=== PATIENT | female | born 1995 | race Caucasian/White ===

== ENCOUNTER 2020-01-04 13:00 | Outpatient (RCR) | payer BC, SELFPAY ==
--- NOTE | 2020-03-06 08:17 | MHC.PT.DC ---
[facility] [place] Office [place] Office [place] Office [address] Veronica Blount [address] [phone] F: [phone] F: [phone] F: [phone] F: [phone] Physical Therapy Discharge Report Diagnosis: Date of Surgery: NA Date of Evaluation: 12/06/19 Date of Discharge: 03/06/20 Treatments to Date: 5 Cancellations to Date: 2 No Shows to Date: 0 Discharge Status: Independent with HEP Patient Elected to Stop Discharge Summary: Pt has no pain when pelvis and spine are in neutral position. Pt has instability in lumbar spine most notable in Lower lumbar. Pt tends to arch lumbar during end range stretching. Propioceptive input with cues and therapist assist during exercises today to help cue on neutral spine position. Pt corrects well with verbal cues. Pt asked to do hip flexor and rectus femoris stretch at home. Electronically signed by: Katia Mendoza PT DPT Please sign and return to therapist. Thank you for your referral.
== END 2020-11-28 13:20 | disposition home or self-care (01) ==
LOC: HO.PT 13:00
PROVIDERS: Visit Provider Family Medicine
DX: M54.5 Low back pain (principal)
CPT/HCPCS: 97110; 97112

== ENCOUNTER 2020-05-24 10:59 | Outpatient (RCR) | payer BC, SELFPAY ==
--- NOTE | 2020-05-24 14:22 | MHC.PT.EP ---
[facility] [place] Office [place] Office [place] Office [address] Veronica Blount [address] [phone] F: [phone] F: [phone] F: [phone] F: [phone] Physical Therapy Plan of Care Date of Evaluation: 05/24/20 Date of Surgery: N/A Diagnosis: Low Back Pain Assessment: Shae is a 25-year-old female presenting to physical therapy with low back pain. She presents with impairments in lumbar ROM, B LE strength, decreased abdominal strength, and altered pelvic symmetry. 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 Frequency and Duration: The patient will be seen 2 visits per week for 5 weeks. 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 2.) Pt will report <2/10 pain at rest to allow her to work on the computer within 3 weeks. 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 2.) Pt will be independent with HEP for symptom management and maintenance following discharge within 5 weeks Treatment Plan: Modalities to reduce pain, spasms and effusion. Manual therapy to restore motion and function. Therapeutic exercise to improve strength and flexibility. Neuromuscular re-education for posture and balance. Therapeutic activities to return to functional activities of daily living. Electronically signed by: Claudia Ulrich, PT, DPT Please sign and return to therapist. Thank you for your referral.
--- NOTE | 2020-06-28 14:16 | MHC.PT.DC ---
[facility] [place] Office [place] Office [place] Office [address] Veronica Blount 140 [facility] [phone] F: [phone] F: [phone] F: [phone] F: [phone] Physical Therapy Discharge Report Diagnosis: Low Back Pain Date of Surgery: N/A Date of Evaluation: 05/24/20 Date of Discharge: 06/28/20 Treatments to Date: 1 Cancellations to Date: 0 No Shows to Date: 0 Discharge Status: Patient Elected to Stop Discharge Summary: Pt did not attend any therapy sessions in over a month due to personal issues. Pt therefore d/c from therapy and was advised to return to therapy when able. Electronically signed by: Claudia Ulrich PT, DPT Please sign and return to therapist. Thank you for your referral.
== END 2020-06-28 14:17 | disposition other institution (70) ==
LOC: HO.PT 10:59
PROVIDERS: PCP Family Medicine; Visit Provider Family Medicine
DX: M54.5 Low back pain (principal)
CPT/HCPCS: 97112; 97140; 97161

== ENCOUNTER 2020-08-07 08:00 | Outpatient (RCR) | payer BC, SELFPAY ==
--- NOTE | 2020-07-31 13:11 | MHC.PT.EP ---
[facility] [place] [facility] [place] Office [place] Office [address] Veronica Blount [address] [phone] F: [phone] F: [phone] F: [phone] F: [phone] Physical Therapy Plan of Care Date of Evaluation: Date of Surgery: Diagnosis: LOW BACK PAIN Assessment: Pt IS 25 YO F REFERRED TO PT FROM DR GÓMEZ WITH LOW BACK PAIN. Pt HAS HAD PT FOR THIS ISSUE WITH SOME RELIEF BUT WASNT ABLE TO COMPLETE LAST BOUT BECAUSE OF WORK HOUR CHANGE. Pt PRESENTS WITH C/O R SIDED LBP WITH SI INVOLVEMENT, Pt WITH POP /CLICKS NOTED IN SI AREA/PUBIC AREA AND FEMORAL AREA. 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 RECOMMENDED 2X/WK BUT Pt REQUESTS 1X/WK FOR SUSTAINABLILITY (Pt HAS HAD TROUBLE CONTINUING WITH SESSIONS IN PAST SO 1X/WK MAY BE MORE BENEFICIAL Frequency and Duration: The patient will be seen 1X/WK X 4 WEEKS Short Term Goals: 1. I HEP WITH DC EX PLAN 2. IMPROVED PELVIC SYMMETRY Fdc Goals: 1.DECREASED BACK PAIN AT LEAST 50% WITH ADLS 2. IMPROVED MOD OSWESTRY Treatment Plan: Modalities to reduce pain, spasms and effusion. Manual therapy to restore motion and function. Therapeutic exercise to improve strength and flexibility. Neuromuscular re-education for posture and balance. Therapeutic activities to return to functional activities of daily living. Electronically signed by: DARION ROCKWELL PT Please sign and return to therapist. Thank you for your referral.
--- NOTE | 2020-09-11 14:07 | MHC.PT.DC ---
[facility] [place] Office [place] Office [place] Office [address] Veronica Blount [address] [phone] F: [phone] F: [phone] F: [phone] F: [phone] Physical Therapy Discharge Report Diagnosis: LOW BACK PAIN Date of Surgery: Date of Evaluation: 07/31/20 Date of Discharge: 09/11/20 Treatments to Date: 2 Cancellations to Date: No Shows to Date: Discharge Status: Patient Elected to Stop Recommend MD Follow-up Discharge Summary: Pt SEEN FOR INIT EVAL AND 1 VISIT PER THAT NOTE BY LORI [employer] LIFE AGENT:[ 08/07 all ex focused on stability at pelvis avoidance of ant. pelvic tilt in static standing.]. Pt THEN CANCELLED NEXT VISIT THEN NS X 2 (?) Electronically signed by: DARION ROCKWELL PT Please sign and return to therapist. Thank you for your referral.
== END 2020-09-11 14:08 | disposition other institution (70) ==
LOC: HO.PT 08:00
PROVIDERS: PCP Family Medicine; Visit Provider Family Medicine
DX: M54.5 Low back pain (principal)
CPT/HCPCS: 97110; 97161

== ENCOUNTER 2021-02-06 12:42 | Outpatient (REF) | payer BC, SELFPAY ==
[2021-02-06 15:04] LABS: Influenza A PCR NEGATIVE (Negative); Influenza B PCR NEGATIVE (Negative); Resp Syncy Virus RNA Qual PCR NEGATIVE (Negative); SARS COV2 PCR INHOUSE NEGATIVE (Negative)
== END 2021-02-06 12:43 | disposition home or self-care (01) ==
LOC: HO.LAB 12:42
PROVIDERS: Visit Provider Family Medicine
DX: Z20.822 Contact with and (suspected) exposure to COVID-19 (principal); J02.9 Acute pharyngitis, unspecified
CPT/HCPCS: 0241U; 36415

== ENCOUNTER 2021-03-21 15:54 | Outpatient (REF) | payer BC, SELFPAY ==
[2021-03-21 20:04] LABS: Influenza A PCR NEGATIVE (Negative); Influenza B PCR NEGATIVE (Negative); Resp Syncy Virus RNA Qual PCR NEGATIVE (Negative); SARS COV2 PCR INHOUSE NEGATIVE (Negative)
== END 2021-03-21 15:55 | disposition home or self-care (01) ==
LOC: HO.LAB 15:54
PROVIDERS: Visit Provider Family Medicine
DX: Z20.822 Contact with and (suspected) exposure to COVID-19 (principal)
CPT/HCPCS: 0241U

== ENCOUNTER 2021-05-14 13:10 | Outpatient (REF) | payer BC, SELFPAY ==
[2021-05-14 13:29] LABS: MANUAL DIFF FLAG NO
[2021-05-14 14:01] LABS: Basophils Percent Auto 0.6 % (0-2); Eosinophils Absolute Auto 0.1 X10*3/uL (0.0-0.4); Eosinophils Percent Auto 2.6 % (0-4); Hemoglobin 11.7 g/dl (12.0-16.0); Imm Gran Abs Auto 0.01 X10*3/uL (0.00-0.03); Imm Gran Pct Auto 0.2 % (0.0-0.4); Lymphocytes Absolute Auto 1.8 X10*3/uL (1.2-4.9); Lymphocytes Percent Auto 36.1 % (20-40); Mean Corpuscular HGB Conc 32.5 g/dl (31.0-35.0); Mean Corpuscular Hemoglobin 28.3 pg (27.0-33.0); Monocytes Absolute Auto 0.4 X10*3/uL (0.1-1.2); Monocytes Percent Auto 8.8 % (2-11); Neutrophils Absolute Auto 2.6 x10*3/uL (2.0-8.3); Neutrophils Percent Auto 51.7 % (45-73); Platelet Count 249 X10*3/uL (160-400); Red Blood Count 4.14 X10*6/uL (4.20-5.50); Red Cell Distribution Width 12.6 % (11.0-16.0)
[2021-05-14 14:35] LABS: Alanine Aminotransferase 18 U/L (0-31); Albumin Level 4.4 g/dL (3.5-5.0); Alkaline Phosphatase 56 U/L (39-117); Anion Gap 7 (12-20); Aspartate Amino Transferase 18 U/L (5-31); Bilirubin Total 0.5 mg/dL (0.0-1.0); Blood Urea Nitrogen 10 mg/dL (9-16); Calcium 9.6 mg/dL (8.4-10.2); Carbon Dioxide 29 mmol/L (22-29); Chloride 106 mmol/L (96-108); Cholesterol 152 mg/dL; Estimated Glomerular Filt Rate > 60; Glucose Fasting 90 mg/dL (60-99); HDL Cholesterol 70 mg/dL; LDL Cholesterol Calculated 75 mg/dl; Potassium 4.3 mmol/L (3.3-5.1); Sodium 138 mmol/L (135-145); Total Protein 7.1 g/dL (6.5-8.0); Triglycerides 35 mg/dL
[2021-05-14 14:51] LABS: TSH reflex Free T4 0.74 uIU/mL (0.32-4.0)
== END 2021-05-14 13:11 | disposition home or self-care (01) ==
LOC: HO.LAB 13:10
PROVIDERS: PCP Family Medicine; Visit Provider Family Medicine
DX: Z00.00 Encounter for general adult medical examination without abnormal findings (principal)
CPT/HCPCS: 36415; 80053; 80061; 84443; 85025

== ENCOUNTER 2022-02-19 14:11 | Outpatient (REF) | payer BC, SELFPAY ==
[2022-02-19 15:00] LABS: Influenza A PCR POSITIVE (Negative); Influenza B PCR NEGATIVE (Negative); Resp Syncy Virus RNA Qual PCR NEGATIVE (Negative); SARS COV2 PCR INHOUSE NEGATIVE (Negative)
== END 2022-02-19 14:12 | disposition home or self-care (01) ==
LOC: HO.LNP 14:11
PROVIDERS: Visit Provider Nurse Practitioner Family
DX: Z20.822 Contact with and (suspected) exposure to COVID-19 (principal); J06.9 Acute upper respiratory infection, unspecified
CPT/HCPCS: 0241U

== ENCOUNTER 2022-11-11 13:48 | Outpatient (AMB) | payer BC, SELFPAY ==
[2022-11-11 13:55] VITALS: BP 120/70; PULSE 83; TEMP 36.9; O2SAT 99; BMI 19.7
--- NOTE | 2022-11-11 13:55 | MHC.PC.OV ---
Vital Signs 11/11/22 13:55 Height 5 ft 11 in Weight 141 lb 4 oz BMI 19.7 BP 120/70 Blood Pressure Location Lt brachial Position Sitting Pulse 83 Pulse Source Pulse Oximeter Temp 98.5 F Temp Source Oral Pulse Oximetry (%) 99 Oxygen Delivery Method Room Air Intake Visit Reasons: Med review Intake Note: Patient is here to discuss bupropion, she took 150 mgs befaore and feels she needs it again. Patient would also like refill of Valcylovir today, also. Allergies amoxicillin Allergy (Mild, Verified 11/11/22 14:10) skin rash Seasonal Allergies Allergy (Verified 11/11/22 14:10) STUFFY NOSE, SORE THROAT Medication List - Last Reconciled 11/11/22 by Celina Best CNP cetirizine (Zyrtec) 10 mg PO DAILY PRN valacyclovir 500 mg PO DAILY Tobacco use date assessed: 11/11/22 Dental Screening Dental Screen Date: 11/11/22 Did you have a dental visit in the last 12 months?: Yes Did you have a dental problem in the last 6 months where you did not have access to dental care?: No Was dental information given to patient?: Patient has dentist HPI HPI Comments History of Present Illness Details 27 y/o female presents for a f/u visit. She notes she stopped taking Wellbutrin 4 months ago. She reports increased anxiety and depression symptoms and requests to resume the medication. She notes she sees a therapist once weekly. She reports history of herpes simplex 1 and reports severe outbreak with facial rash for the past 6 weeks. She notes she recently visited her family in [place] and was prescribed Acyclovir cream which has been effective with her facial rash; she requests an order for this. No pain or itching. She notes she has an appointment with Dermatology on Friday this week. [facility] Medical History Allergies Fainting spell Surgical History History of resection of large bowel Family History Mother No problems noted. 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 1. Little interest or pleasure in doing things: several days 2. Feeling down, depressed, or hopeless: several days 3. Trouble falling or staying asleep, or sleeping too much: several days 4. Feeling tired or having little energy: several days 5. Poor appetite or overeating: nearly every day 6. Feeling bad about yourself - or that you are a failure or have let yourself or your family down: several days 7. Trouble concentrating on things, such as reading the newspaper or watching television: several days 8. Moving or speaking so slowly that other people could have noticed. Or the opposite - being so fidgety or restless that you have been moving around a lot more than usual: several days 9. Thoughts that you would be better off or of hurting yourself in some way: not at all Total score: 10 Depression Screening Interpretation: Positive Depression Screening Follow-up: Existing condition and New Medication prescribed Source: Developed by Drs. Gilbert Winston, Marilyn Hartmann, Alon Mclean and colleagues, with an educational elton from [employer]. Thrive Questionnaire Date Thrive assessed: 11/09/20 ELODIA-7 AMB Questionnaire ELODIA-7 Date ELODIA - 7 assessed: 11/11/22 Feeling nervous, anxious, or on edge: 2 = More than half the days Not being able to stop or control worryin = More than half the days Worrying too much about different things: 2 = More than half the days Trouble relaxin = More than half the days Being so restless that it is hard to sit still: 2 = More than half the days Becoming easily annoyed or irritable: 2 = More than half the days Feeling afraid as if something awful might happen: 1 = Several days Total ELODIA-7 score (0-4 normal; 5-9 mild; 10-14 moderate; 15-21 severe): 13 Source: Developed by Drs. Gilbert Winston, Marilyn Hartmann, Alon Mclean and colleagues, with an educational elton from [employer]. Review of Systems Const Details: Const Denies chills, Denies fatigue, Denies fever(s), Denies headache(s) and Denies weakness ENT Denies dizziness and Denies headache(s) Card Denies chest pain, Denies lightheadedness, Denies dyspnea and Denies other (Palpitations) Resp Denies cough, Denies dyspnea, Denies wheezing and Denies other ( shortness of breath) GI Denies abdominal pain, Denies melena, Denies hematochezia, Denies change in bowel habits, Denies dyspepsia and Denies nausea Denies hematuria and Denies dysuria Musc Denies abnormal gait, Denies myalgias, Denies arthralgias, Denies numbness and Denies tingling Skin/Breast Reports rash, Denies unusual bruising and Denies wounds Neuro Denies abnormal gait, Denies dizziness, Denies headache(s), Denies memory loss, Denies numbness, Denies Sensory deficit (Neuro), Denies tingling and Denies weakness Psych Reports anxiety, Reports depression, Denies memory loss Endo Denies cold intolerance, Denies fatigue, Denies heat intolerance, Denies polydipsia and Denies polyuria Aller/Immun Denies wheezing Physical exam (Primary Care) Vital Signs: Last Vital Signs Temp 98.5 F 11/11/22 13:55 Pulse 83 11/11/22 13:55 BP 120/70 11/11/22 13:55 Pulse Ox 99 11/11/22 13:55 Oxygen Delivery Method Room Air 11/11/22 13:55 BMI result Body Mass Index 19.7 Tobacco/Smoking Status: Tobacco use Status Tobacco use date assessed 11/11/22 11/11/22 14:07 Patient Tobacco Use Status Never used Tobacco 11/11/22 14:07 e-Cigarette/Vaping Use Never Used 11/11/22 14:07 PHQ-9: PHQ-9 Score PHQ-9: Total score 10 11/11/22 14:07 Depression Screening Interpretation: Positive Depression Screening Follow-up: Existing condition and New Medication prescribed Thrive Assessment: Date of Thrive Assessment Date Thrive assessed 11/09/20 11/11/22 14:07 Const Other: General: no acute distress and well developed Nutritional Appearance: well nourished Orientation/consciousness: patient oriented x3 [facility] Head: Yes normocephalic and Yes atraumatic Eyes General: appearance normal, both eyes and all related structures Pupils: Equal, round and reactive pupils present EOM: EOMs intact bilaterally Resp Effort & Inspection: normal respiratory effort Auscultation: clear to auscultation bilaterally Cardio Rate: regular rate Rhythm: regular rhythm Heart sounds: S1 normal heart sound present, S2 normal heart sound present, no gallops, no murmurs and no rubs GI Palpation (GI): No Abdominal aortic bruit present, Soft to palpation, nontender, No hepatosplenomegaly present and No Rebound tenderness present Auscultation: normal bowel sounds General: Yes no CVA tenderness Back/Spine/Pelvis Back: no CVA tenderness Cervical Spine: cervical ROM normal and No Cervical spine tenderness Thoracic/Lumbar Spine: thoraco-lumbar ROM normal, No pain with thoraco-lumbar ROM, No thoracic spinal tenderness and No lumbar spinal tenderness Extrem General: Yes normal to inspection, No edema and No calf tenderness Skin General: warm and dry. Normal skin color. Normal skin turgor Lesions: no lesions Rashes: Red, slightly raised pimple-like rash noted to her entire face and around her eyes, no overt infection Trauma: no lacerations or abrasions Wounds: no wounds Nails: normal Neuro General: patient oriented x3, gait normal and no focal neuro deficit Cranial nerves: Yes Equal, round and reactive pupils present Cognition (Neuro): normal cognition Gait exam (Neuro): Normal gait present Sensory Exam: No Sensory deficit (Neuro) Psych Appearance: grossly normal Affect: normal affect Attitude: cooperative Thought process: Normal thought process present Assessment and Plan Assessment & Plan (1) HSV (herpes simplex virus) infection: Code(s): B00.9 - Herpesviral infection, unspecified Plan: Red, slightly raised pimple-like rash noted to her entire face and around her eyes Acyclovir ointment ordered. Use as prescribed Follow-up with Dermatology as planned Return with worsening or new signs and symptoms Verbalized understanding and agreed with the treatment plan. (2) Anxiety and depression: Code(s): F41.9 - Anxiety disorder, unspecified; F32.9 - Major depressive disorder, single episode, unspecified Plan: ELODIA-7 in PHQ-9 scores revealed moderate anxiety and depression Bupropion ordered. Take as prescribed Continue with weekly therapy Routine exercise encouraged Follow-up with PCP as planned next month Return sooner with worsening or new symptoms Verbalized understanding and agreed with the treatment plan. Medications: New acyclovir 5% (Zovirax) 1 appl topical 3XD 7 days 5 grams 1RF B00.1 - Herpesviral vesicular dermatitis bupropion HCl 150 mg PO QAM 30 days 30 tabs 3RF Coding Level of Care Code Est Pt Level 3 (15225) Diagnoses HSV (herpes simplex virus) infection B00.9 Anxiety and depression F41.9; F32.9 Time Spent (min) 25
== END 2022-11-11 14:33 | disposition home or self-care (01) ==
PROVIDERS: PCP Family Medicine; Visit Provider Nurse Practitioner Family
DX: B00.9 Herpesviral infection, unspecified (principal); F41.9 Anxiety disorder, unspecified; F33.9 Major depressive disorder, recurrent, unspecified
CPT/HCPCS: 99213

== ENCOUNTER 2022-12-12 13:27 | Outpatient (AMB) | payer BC, SELFPAY ==
[2022-12-12 13:33] VITALS: BP 112/68; PULSE 85; O2SAT 99; BMI 19.9
--- NOTE | 2022-12-12 13:33 | A.OFFPC_ITS ---
Vital Signs 12/12/22 13:33 Height 5 ft 11 in Weight 143 lb BMI 19.9 BP 112/68 Blood Pressure Location Rt brachial Position Sitting Pulse 85 Pulse Source Pulse Oximeter Pulse Oximetry (%) 99 Oxygen Delivery Method Room Air Intake Visit Reasons: Discuss personal matters Intake Note: Patient would like a referral for a psychiatrist. Would like a mental evaluation. Allergies amoxicillin Allergy (Mild, Verified 12/12/22 13:34) skin rash Seasonal Allergies Allergy (Verified 12/12/22 13:34) STUFFY NOSE, SORE THROAT Medication List - Last Reconciled 12/12/22 by Jim Bee MD acyclovir 5% (Zovirax) 1 appl topical 3XD 7 days bupropion HCl 150 mg PO QAM 30 days cetirizine (Zyrtec) 10 mg PO DAILY PRN valacyclovir 500 mg PO DAILY Tobacco use date assessed: 12/12/22 HPI Discuss personal matters HPI Details 27 y/o female presents today to f/u anxi ety and depression. She is requesting a referral for a psychiatrist. Pt reports episodes of significant anxiety and manic episodes. She is on bupropion 150mg which she states has been helping her a bit. She also reports loose stools. PFSH Medical History Fainting spell Allergies Surgical History History of resection of large bowel Family History Mother No problems noted. 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 Gilbert Winston, Marilny Hartmann, Alon Mclean and colleagues, with an educational elton from [employer]. Review of Systems Const Denies chills, Denies fatigue, Denies fever(s), Denies headache(s) and Denies weakness ENT Denies dizziness and Denies headache(s) Card Denies chest pain, Denies lightheadedness, Denies dyspnea and Denies other (Palpitations) Resp Denies cough, Denies dyspnea, Denies wheezing and Denies other ( shortness of breath) GI Reports loose stools Musc Denies numbness and Denies tingling Neuro Denies dizziness, Denies headache(s), Denies numbness, Denies tingling, Denies paresthesias and Denies weakness Psych Reports anxiety and Reports depression Endo Denies fatigue Aller/Immun Denies wheezing Physical exam (Primary Care) Vital Signs: Last Vital Signs Pulse 85 12/12/22 13:33 BP 112/68 12/12/22 13:33 Pulse Ox 99 12/12/22 13:33 Oxygen Delivery Method Room Air 12/12/22 13:33 BMI result Body Mass Index 19.9 Tobacco/Smoking Status: Tobacco use Status Tobacco use date assessed 12/12/22 12/12/22 13:35 Patient Tobacco Use Status Never used Tobacco 12/12/22 13:35 e-Cigarette/Vaping Use Never Used 12/12/22 13:35 Thrive Assessment: Date of Thrive Assessment Date Thrive assessed 11/09/20 12/12/22 13:35 Const General: no acute distress and well developed Nutritional Appearance: well nourished Orientation/consciousness: patient oriented x3 [facility] Head: Yes normocephalic and Yes atraumatic Eyes General: appearance normal, both eyes and all related structures Pupils: Equal, round and reactive pupils present EOM: EOMs intact bilaterally Resp Effort & Inspection: normal respiratory effort Auscultation: clear to auscultation bilaterally Cardio Rate: regular rate Rhythm: regular rhythm Heart sounds: S1 normal heart sound present, S2 normal heart sound present, no gallops, no murmurs and no rubs Neuro General: patient oriented x3 and gait normal Cranial nerves: Yes Equal, round and reactive pupils present Psych Affect: Anxious affect present Assessment and Plan Assessment & Plan (1) Anxiety and depression: Code(s): F41.9 - Anxiety disorder, unspecified; F32.9 - Major depressive disorder, single episode, unspecified Plan: Ongoing moderately severe anxiety and depression. She feels that she has had a manic episode previously and more recently has been feeling like she has crashed from this and is depressed and anxious. Strong family history of bipolar disorder. I have been avoiding SSRIs for that reason. She had stopped her own medications. More recently was restarted on bupropion. Will continue bupropion an at a small amount of Abilify which she tried in the past. She initially noted it helped but later stopped it saying that she was unsure was helping much. She had had no adverse effects from that. Take bupropion in the mornings and Abilify at bedtime. Will follow-up in a couple of weeks to see if we need to adjust Abilify or bupropion further. Still has a therapist. I will refer her to Psychiatry today. (2) Loose stools: Code(s): R19.5 - Other fecal abnormalities Plan: Probable IBS and probable anxiety contributing factors. Hydrate well Trial a soluble fiber tablet. If these conservative measures and controlling her anxiety better are not im proving her symptoms, I will refer her to GI Orders: Orders Comprehensive [place]. Panel Fast Today Z00.00 - Encounter for general adult medical examination without abnormal findings Vitamin D 25-OH Total Today E55.9 - Vitamin D deficiency, unspecified TSH reflex Free T4 Today Z00.00 - Encounter for general adult medical examination without abnormal findings Complete Blood Count Auto Diff Today Z00.00 - Encounter for general adult medical examination without abnormal findings Referrals Psychiatry Referral F32.9 - Major depressive disorder, single episode, unspecified, F41.9 - Anxiety disorder, unspecified, Z81.8 - Family history of other mental and behavioral disorders Medications: New aripiprazole (Abilify) 2 mg PO BEDTIME 30 days 30 tabs 2RF calcium polycarbophil (FiberCon) 625 mg PO DAILY 30 tabs 2RF 30 days Refilled bupropion HCl 150 mg PO QAM 30 days 30 tabs 3RF Coding Level of Care Code Est Pt Level 3 (52542) Diagnoses Anxiety and depression F41.9; F32.9 Loose stools R19.5
== END 2022-12-12 14:09 | disposition home or self-care (01) ==
PROVIDERS: PCP Family Medicine; Visit Provider Family Medicine
DX: F41.9 Anxiety disorder, unspecified (principal); F33.1 Major depressive disorder, recurrent, moderate; R19.5 Other fecal abnormalities
CPT/HCPCS: 99213

== ENCOUNTER 2023-01-16 09:44 | Outpatient (REF) | payer BC, SELFPAY ==
[2023-01-16 09:54] LABS: MANUAL DIFF FLAG NO
[2023-01-16 10:54] LABS: Basophils Absolute Auto 0.1 X10*3/uL (0.0-0.2); Eosinophils Absolute Auto 0.2 X10*3/uL (0.0-0.4); Eosinophils Percent Auto 2.8 % (0-4); Hematocrit 36.2 % (37.0-47.0); Hemoglobin 11.9 g/dl (12.0-16.0); Imm Gran Abs Auto 0.03 X10*3/uL (0.00-0.03); Imm Gran Pct Auto 0.5 % (0.0-0.4); Lymphocytes Absolute Auto 1.6 X10*3/uL (1.2-4.9); Mean Corpuscular HGB Conc 32.9 g/dl (31.0-35.0); Mean Corpuscular Hemoglobin 27.4 pg (27.0-33.0); Mean Corpuscular Volume 83.2 fL (80.0-98.0); Mean Platelet Volume 8.7 fL (9.4-12.3); Monocytes Absolute Auto 0.6 X10*3/uL (0.1-1.2); Monocytes Percent Auto 9.7 % (2-11); Neutrophils Absolute Auto 3.3 x10*3/uL (2.0-8.3); Platelet Count 269 X10*3/uL (160-400); Red Blood Count 4.35 X10*6/uL (4.20-5.50); Red Cell Distribution Width 13.8 % (11.0-16.0); White Blood Count 5.8 X10*3/uL (4.8-10.8)
[2023-01-16 11:25] LABS: Alanine Aminotransferase 18 U/L (0-31); Albumin Level 4.5 g/dL (3.5-5.0); Alkaline Phosphatase 67 U/L (39-117); Anion Gap 14 (12-20); Aspartate Amino Transferase 17 U/L (5-31); Bilirubin Total 0.5 mg/dL (0.0-1.0); Blood Urea Nitrogen 11 mg/dL (9-16); Calcium 9.7 mg/dL (8.4-10.2); Carbon Dioxide 27 mmol/L (22-29); Chloride 105 mmol/L (96-108); Estimated Glomerular Filt Rate > 60; Glucose Fasting 92 mg/dL (60-99); Potassium 3.9 mmol/L (3.3-5.1); Sodium 142 mmol/L (135-145); Total Protein 7.5 g/dL (6.5-8.0)
[2023-01-16 11:41] LABS: TSH reflex Free T4 1.27 uIU/mL (0.32-4.0); Vitamin D 25-OH Total 33.2 ng/mL (>30)
== END 2023-01-16 09:45 | disposition home or self-care (01) ==
LOC: HO.LAB 09:44
PROVIDERS: PCP Family Medicine; Visit Provider Family Medicine
DX: Z00.00 Encounter for general adult medical examination without abnormal findings (principal); E55.9 Vitamin D deficiency, unspecified
CPT/HCPCS: 36415; 80053; 82306; 84443; 85025

== ENCOUNTER 2023-01-20 15:35 | Outpatient (AMB) | payer BC, SELFPAY ==
[2023-01-20 15:57] VITALS: BP 106/60; PULSE 87; O2SAT 98; BMI 22.0
--- NOTE | 2023-01-20 15:57 | MHC.PC.OV ---
Vital Signs 01/20/23 15:57 Height 5 ft 11 in Weight 158 lb BMI 22.0 BP 106/60 Blood Pressure Location Lt brachial Position Sitting Pulse 87 Pulse Source Pulse Oximeter Pulse Oximetry (%) 98 Oxygen Delivery Method Room Air Intake Visit Reasons: follow up labs, anxiety/depression Intake Note: Patient is here to follow up on labs, and anxiety and depression. Allergies amoxicillin Allergy (Mild, Verified 01/20/23 16:00) skin rash Seasonal Allergies Allergy (Verified 01/20/23 16:00) STUFFY NOSE, SORE THROAT Tobacco use date assessed: 01/20/23 HPI follow up labs, anxiety/depression HPI Details 27 y/o female presents to f/u anxiety/depresssion and ?bipolar disorder. Continued her bupropion and added some Abilify. Had referred her to psychiatry. Had went to a partial program 01/09/23 and was discharged with aripiprazole 2mg. She reports they had advised to take her Abilify but come off her burpopion. She reports that she has stopped bupropion 2 weeks ago but has been having difficulty with this. She is unsure if Abilify has been helping due to her difficulties with stopping bupropion. She has a therapist but is still on a waiting list for PSY. She is unsure how long the waiting list is and they have not called her. Also f/u loose stools. Had advised hydration and soluble fiber. Labs were drawn 01/16/23. Reviewed labs with pt. Mild anemia which is improving. [facility] Medical History Fainting spell Allergies Surgical History History of resection of large bowel Family History Mother No problems noted. Father Mental health disorder Substance abuse Social History Housing: House Alcohol intake: current Alcohol intake frequency: holidays/special occasions only Patient Tobacco Use Status: Never used Tobacco e-Cigarette/Vaping Use: Never Used Second Hand Smoke Exposure: No service: No Current occupational status: employed and student Current occupational exposures/hazards: No Cognitive needs: No Hearing needs: No Vision needs: No Questionnaire PHQ-9 Over the last 2 weeks, how often have you been bothered by any of the following problems? 1. Little interest or pleasure in doing things: nearly every day 2. Feeling down, depressed, or hopeless: nearly every day 3. Trouble falling or staying asleep, or sleeping too much: nearly every day 4. Feeling tired or having little energy: nearly every day 5. Poor appetite or overeating: nearly every day 6. Feeling bad about yourself - or that you are a failure or have let yourself or your family down: nearly every day 7. Trouble concentrating on things, such as reading the newspaper or watching television: nearly every day 8. Moving or speaking so slowly that other people could have noticed. Or the opposite - being so fidgety or restless that you have been moving around a lot more than usual: more than half the days 9. Thoughts that you would be better off or of hurting yourself in some way: more than half the days Total score: 25 Depression Screening Interpretation: Positive Depression Screening Done: Yes Source: Developed by Drs. Gilbert Winston, Marilyn Hartmann, Alon Mclean and colleagues, with an educational elton from [employer]. Thrive Questionnaire Date Thrive assessed: 11/09/20 ELODIA-7 AMB Questionnaire ELODIA-7 Date ELODIA - 7 assessed: 01/20/23 Feeling nervous, anxious, or on edge: 3 = Nearly every day Not being able to stop or control worryin = Nearly every day Worrying too much about different things: 3 = Nearly every day Trouble relaxin = Nearly every day Being so restless that it is hard to sit still: 3 = Nearly every day Becoming easily annoyed or irritable: 2 = More than half the days Feeling afraid as if something awful might happen: 3 = Nearly every day Total ELODIA-7 score (0-4 normal; 5-9 mild; 10-14 moderate; 15-21 severe): 20 Source: Developed by Drs. Gilbert Winston, Marilyn Hartmann, Alon Mclean and colleagues, with an educational elton from [employer]. Review of Systems Const Denies chills, Denies fatigue, Denies fever(s), Denies headache(s) and Denies weakness ENT Denies dizziness and Denies headache(s) Card Denies chest pain, Denies lightheadedness, Denies dyspnea and Denies other (Palpitations) Resp Denies cough, Denies dyspnea, Denies wheezing and Denies other ( shortness of breath) Musc Denies numbness and Denies tingling Neuro Denies dizziness, Denies headache(s), Denies numbness, Denies tingling, Denies paresthesias and Denies weakness Psych Reports anxiety and Reports depression Endo Denies fatigue Aller/Immun Denies wheezing Physical exam (Primary Care) Vital Signs: Last Vital Signs Pulse 87 01/20/23 15:57 BP 106/60 01/20/23 15:57 Pulse Ox 98 01/20/23 15:57 Oxygen Delivery Method Room Air 01/20/23 15:57 BMI result Body Mass Index 22.0 Tobacco/Smoking Status: Tobacco use Status Tobacco use date assessed 01/20/23 01/20/23 16:01 Patient Tobacco Use Status Never used Tobacco 01/20/23 16:01 e-Cigarette/Vaping Use Never Used 01/20/23 16:01 PHQ-9: PHQ-9 Score PHQ-9: Total score 25 01/20/23 16:11 Depression Screening Interpretation: Positive Thrive Assessment: Date of Thrive Assessment Date Thrive assessed 11/09/20 01/20/23 16:01 Const General: no acute distress and well developed Nutritional Appearance: well nourished Orientation/consciousness: patient oriented x3 HENMT Head: Yes normocephalic and Yes atraumatic Eyes General: appearance normal, both eyes and all related structures Pupils: Equal, round and reactive pupils present EOM: EOMs intact bilaterally Resp Effort & Inspection: normal respiratory effort Auscultation: clear to auscultation bilaterally Cardio Rate: regular rate Rhythm: regular rhythm Heart sounds: S1 normal heart sound present, S2 normal heart sound present, no gallops, no murmurs and no rubs Neuro General: patient oriented x3 and gait normal Cranial nerves: Yes Equal, round and reactive pupils present Psych Affect: normal affect Assessment and Plan Assessment & Plan (1) Anxiety and depression: Code(s): F41.9 - Anxiety disorder, unspecified; F32.9 - Major depressive disorder, single episode, unspecified Plan: recent partial program discontinued her bupropion and she notes significant fatigue since doing so. Tolerating Abilify though she is not sure if it is helping will resume bupropion at a much lower dose; 75 mg daily and she can take this as 37.5 mg b.i.d. or the whole tablet each day. Advised she watch for any manic symptoms which were reviewed we can consider adjusting her Abilify at her next visit still working on trying to get her a psychiatrist. Continue to follow-up with therapist (2) Mild anemia: Code(s): D64.9 - Anemia, unspecified Plan: Improving (3) Loose stools: Code(s): R19.5 - Other fecal abnormalities Plan: improved with FiberCon which she can continue (4) Bipolar disorder: Code(s): F31.9 - Bipolar disorder, unspecified Plan: continue Abilify working on getting her refer to a psychiatrist Orders: Referrals Nurse Navigator Referral F31.9 - Bipolar disorder, unspecified, F32.9 - Major depressive disorder, single episode, unspecified, F41.9 - Anxiety disorder, unspecified Medications: New bupropion HCl 75 mg PO DAILY 30 days 30 tabs 2RF Changed From calcium polycarbophil (FiberCon) 625 mg PO DAILY 30 days 30 tabs 2RF To calcium polycarbophil (FiberCon) 625 mg PO DAILY 90 days 90 tabs 2RF Discontinued bupropion HCl Discontinued Reason: Doctor's Order 150 mg PO QAM 30 days 30 tabs 3RF Coding Level of Care Code Est Pt Level 4 (38167) Diagnoses Anxiety and depression F41.9; F32.9 Mild anemia D64.9 Loose stools R19.5 Bipolar disorder F31.9
== END 2023-01-20 16:38 | disposition home or self-care (01) ==
PROVIDERS: PCP Family Medicine; Visit Provider Family Medicine
DX: F41.9 Anxiety disorder, unspecified (principal); F31.9 Bipolar disorder, unspecified; D64.9 Anemia, unspecified; R19.5 Other fecal abnormalities
CPT/HCPCS: 99214

== ENCOUNTER 2023-09-03 14:02 | Outpatient (AMB) | payer OTHER, SELFPAY ==
--- NOTE | 2023-09-03 14:19 | A.OFFPC_ITS ---
Vital Signs 09/03/23 14:24 Height 5 ft 11 in Weight 202 lb BMI 28.2 BP 122/64 Blood Pressure Location Rt brachial Position Sitting Respiration 14 Pulse 78 Pulse Source Pulse Oximeter Temp 97.8 F Temp Source Temporal Artery Scan Pulse Oximetry (%) 99 Oxygen Delivery Method Room Air Intake Visit Reasons: CPE with f/u labs and health main Intake Note: Patient is here for physical today. Allergies amoxicillin Allergy (Mild, Verified 09/03/23 14:21) skin rash Seasonal Allergies Allergy (Verified 09/03/23 14:21) STUFFY NOSE, SORE THROAT Medication List - Last Reconciled 09/03/23 by Jim Bee MD acyclovir 5% (Zovirax) 1 appl topical 3XD 7 days aripiprazole (Abilify) 10 mg PO BEDTIME bupropion HCl XL 300 mg PO QAM calcium polycarbophil (FiberCon) 625 mg PO DAILY 90 days cetirizine (Zyrtec) 10 mg PO DAILY PRN valacyclovir 500 mg PO DAILY Tobacco use date assessed: 09/03/23 Dental Screening Dental Screen Date: 09/03/23 Did you have a dental visit in the last 12 months?: Yes Did you have a dental problem in the last 6 months where you did not have access to dental care?: No Was dental information given to patient?: Patient has dentist HPI CPE with f/u labs and health main HPI Details 28 y/o female presents for a CPE with f/ u labs and health maintenance. No recent labs to review. Last pap smear per pt was over a year ago. [facility] Medical History Fainting spell Allergies Surgical History History of resection of large bowel Family History Mother No problems noted. 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 1. Little interest or pleasure in doing things: not at all 2. Feeling down, depressed, or hopeless: not at all 3. Trouble falling or staying asleep, or sleeping too much: not at all 4. Feeling tired or having little energy: not at all 5. Poor appetite or overeating: not at all 6. Feeling bad about yourself - or that you are a failure or have let yourself or your family down: not at all 7. Trouble concentrating on things, such as reading the newspaper or watching television: not at all 8. Moving or speaking so slowly that other people could have noticed. Or the opposite - being so fidgety or restless that you have been moving around a lot more than usual: not at all 9. Thoughts that you would be better off or of hurting yourself in some way: not at all Total score: 0 Depression Screening Interpretation: Negative Depression Screening Done: Yes 93998 - PHQ-9 Billing: Yes Source: Developed by Drs. Gilbert Winston, Marilyn Hartmann, Alon Mclean and colleagues, with an educational elton from [employer]. Thrive Questionnaire Date Thrive assessed: 11/09/20 I am a: Patient What is your living situation today?: I have a steady place to live Within the past 12 months, did the food you bought not last and you didn't have the money to get more?: Never true Within the past 12 months, did you worry whether your food would run out before you got money to buy more?: Never true Do you have trouble paying for medicines?: No Do you have trouble getting transportation to medical appointments?: No Do you have trouble paying your heating and electricity bill?: No Do you have trouble taking care of your child, family member or friend?: No Do you have trouble with day-to-day activities such as bathing, preparing meals, shopping, managing finances, etc.?: No Are you currently unemployed and looking for a job?: No Are you interested in more education?: No Please select the resources that you would like help with: None Currently or been in a relationship where the following occur: no concerns reported THRIVE Score: 0 AUDIT C Alcohol Use Questionnaire (AUDIT-C) 1. How often do you have a drink containing alcohol?: Monthly or less 2. How many drinks containing alcohol do you have on a typical day when you are drinking?: 1 or 2 3. How often do you have six or more drinks on one occasion?: Never Total Score: 1 ELODIA-7 AMB Questionnaire ELODIA-7 Date ELODIA - 7 assessed: 09/03/23 Feeling nervous, anxious, or on edge: 0 = Not at all Not being able to stop or control worryin = Not at all Worrying too much about different things: 0 = Not at all Trouble relaxin = Not at all Being so restless that it is hard to sit still: 0 = Not at all Becoming easily annoyed or irritable: 0 = Not at all Feeling afraid as if something awful might happen: 0 = Not at all Total ELODIA-7 score (0-4 normal; 5-9 mild; 10-14 moderate; 15-21 severe): 0 Source: Developed by Drs. Gilbert Winston, Marilyn Hartmann, Alon Mclean and colleagues, with an educational elton from [employer]. ELODIA-7 Assessment Billing ELODIA-7 Assessment Tool: ELODIA-7 Assessment 17692 Review of Systems Const Denies chills, Denies fatigue, Denies fever(s), Denies headache(s) and Denies weakness Eyes Denies change in vision ENT Denies dizziness, Denies headache(s), Denies hearing loss, Denies nasal congestion, Denies sinus pain, Denies sinus pressure and Denies sore throat Card Denies chest pain, Denies lightheadedness, Denies dyspnea and Denies other (palpitations) Resp Denies cough, Denies dyspnea and Denies wheezing GI Denies abdominal pain, Denies melena, Denies hematochezia, Denies change in bowel habits, Reports constipation, Denies dyspepsia and Denies nausea Denies hematuria and Denies dysuria Musc Denies abnormal gait, Denies myalgias, Denies arthralgias, Denies numbness and Denies tingling Skin/Breast Denies rash, Denies unusual bruising and Denies wounds Neuro Denies abnormal gait, Denies dizziness, Denies headache(s), Denies memory loss, Denies numbness, Denies Sensory deficit (Neuro), Denies tingling and Denies weakness Psych Denies anxiety, Denies depression and Denies memory loss Endo Denies cold intolerance, Denies fatigue, Denies heat intolerance, Denies polydipsia and Denies polyuria Brent/Lymph Denies easy bleeding and Denies easy bruising Aller/Immun Denies wheezing Physical exam (Primary Care) Vital Signs: Last Vital Signs Temp 97.8 F 09/03/23 14:24 Pulse 78 09/03/23 14:24 Resp 14 09/03/23 14:24 BP 122/64 09/03/23 14:24 Pulse Ox 99 09/03/23 14:24 Oxygen Delivery Method Room Air 09/03/23 14:24 BMI result Body Mass Index 28.2 Tobacco/Smoking Status: Tobacco use Status Tobacco use date assessed 09/03/23 09/03/23 14:28 Patient Tobacco Use Status Never used Tobacco 09/03/23 14:20 e-Cigarette/Vaping Use Never Used 09/03/23 14:20 PHQ-9: PHQ-9 Score PHQ-9: Total score 0 09/03/23 14:28 Depression Screening Interpretation: Negative Thrive Assessment: Date of Thrive Assessment Date Thrive assessed 11/09/20 09/03/23 14:20 Currently or been in a relationship where the following occur: no concerns reported Const General: no acute distress, well developed, alert and awake Nutritional Appearance: well nourished Orientation/consciousness: patient oriented x3 HENMT Head: Yes normocephalic and Yes atraumatic Ears: hearing grossly normal bilaterally and TM's normal bilaterally General nose exam: Normal external nose present and Normal nares present Mouth: Normal oral and palatal mucosa present and moist mucous membranes Teeth and gingiva: dentition normal Throat: Yes posterior oropharynx normal Eyes General: appearance normal, both eyes and all related structures Pupils: Equal, round and reactive pupils present and Pupil accommodation reflex normal EOM: EOMs intact bilaterally Neck Neck: Yes normal visual inspection, Yes no lymphadenopathy and Yes trachea midline Thyroid: Thyroid normal Carotids: no bruits Lymphatic: no lymphadenopathy noted Chest Chest palpation & inspection: normal inspection of the chest Resp Effort & Inspection: normal respiratory effort Auscultation: clear to auscultation bilaterally Cardio Rate: regular rate Rhythm: regular rhythm Heart sounds: S1 normal heart sound present, S2 normal heart sound present, no gallops, no murmurs and no rubs Bruits: no abdominal aortic bruits and no carotid bruits GI Palpation (GI): No Abdominal aortic bruit present, Soft to palpation, nontender, No hepatosplenomegaly present and No Rebound tenderness present Auscultation: normal bowel sounds General: Yes no CVA tenderness Back/Spine/Pelvis Back: no CVA tenderness Cervical Spine: cervical ROM normal and No Cervical spine tenderness Thoracic/Lumbar Spine: thoraco-lumbar ROM normal, No pain with thoraco-lumbar ROM, No thoracic spinal tenderness and No lumbar spinal tenderness Skin Lesions: no lesions Rashes: no rashes Trauma: no lacerations or abrasions Wounds: no wounds Nails: normal Neuro General: patient oriented x3 Cranial nerves: Yes Equal, round and reactive pupils present Cognition (Neuro): normal cognition Gait exam (Neuro): Normal gait present Motor exam (neuro): 5/5 motor strength present throughout Sensory Exam: No Sensory deficit (Neuro) Deep tendon reflexes (DTR's): Right patellar reflex intensity grade: 2+ and Left patellar reflex intensity grade: 2+ Extrem General: Yes normal to inspection and No edema Psych Appearance: grossly normal Affect: normal affect Attitude: cooperative Thought process: Normal thought process present Assessment and Plan Assessment & Plan (1) Adult general medical exam: Code(s): Z00.00 - Encounter for general adult medical examination without abnormal findings Plan: Year?old?female?presents?for?an?extended?exam Exam?all?within?normal?range Encouraged?healthy?diet?with?active?lifestyle?and?plenty?of?exercise (2) Constipation: Code(s): K59.00 - Constipation, unspecified Plan: Encouraged?increased?hydration Encouraged?soluble?fiber (3) Screening for cervical cancer: Code(s): Z12.4 - Encounter for screening for malignant neoplasm of cervix Plan: Luis Alberto crespo?notes?she?had?an?appointment?with?her?chicken handler?about?a?year?ago?and?thinks?she? is?up-to-date. I?encouraged?her?to?give?her?chicken handler?a?call?to?make?sure?she?knows?when?to?follow-up Orders: Orders Comprehensive [place]. Panel Fast Today Z00.00 - Encounter for general adult medical examination without abnormal findings Lipid Panel Today Z00.00 - Encounter for general adult medical examination without abnormal findings Microalbumin, Random (w Creat) Today I10 - Essential (primary) hypertension TSH reflex Free T4 Today Z00.00 - Encounter for general adult medical examination without abnormal findings Complete Blood Count Auto Diff Today Z00.00 - Encounter for general adult medical examination without abnormal findings UA and rflx microscopic Today Z00.00 - Encounter for general adult medical examination without abnormal findings Medications: Changed From aripiprazole (Abilify) 2 mg PO BEDTIME 30 days 30 tabs 2RF To aripiprazole (Abilify) 10 mg PO BEDTIME Coding Level of Care Code Est Pt Level 4 (67833) Diagnoses Adult general medical exam Z00.00 Constipation K59.00 Screening for cervical cancer Z12.4 Additional Codes ELODIA-7 Assessment Billing - ELODIA-7 Assessment Tool: ELODIA-7 Assessment 39715 ([id number])
[2023-09-03 14:24] VITALS: BP 122/64; PULSE 78; RESP 14; TEMP 36.6; O2SAT 99; BMI 28.2
== END 2023-09-03 14:38 | disposition home or self-care (01) ==
PROVIDERS: PCP Family Medicine; Visit Provider Family Medicine
DX: Z00.00 Encounter for general adult medical examination without abnormal findings (principal); K59.00 Constipation, unspecified
CPT/HCPCS: 99395

== ENCOUNTER 2023-10-10 11:47 | Outpatient (REF) | payer OTHER, SELFPAY ==
[2023-10-10 12:04] LABS: MANUAL DIFF FLAG NO
[2023-10-10 12:27] LABS: Basophils Percent Auto 0.5 % (0-2); Eosinophils Absolute Auto 0.1 X10*3/uL (0.0-0.4); Eosinophils Percent Auto 2.3 % (0-4); Hematocrit 36.4 % (37.0-47.0); Hemoglobin 11.9 g/dl (12.0-16.0); Imm Gran Abs Auto 0.01 X10*3/uL (0.00-0.03); Imm Gran Pct Auto 0.2 % (0.0-0.4); Lymphocytes Absolute Auto 1.9 X10*3/uL (1.2-4.9); Lymphocytes Percent Auto 31.4 % (20-40); Mean Corpuscular HGB Conc 32.7 g/dl (31.0-35.0); Mean Corpuscular Hemoglobin 27.5 pg (27.0-33.0); Mean Corpuscular Volume 84.3 fL (80.0-98.0); Mean Platelet Volume 8.7 fL (9.4-12.3); Monocytes Absolute Auto 0.7 X10*3/uL (0.1-1.2); Monocytes Percent Auto 11.8 % (2-11); Neutrophils Absolute Auto 3.3 x10*3/uL (2.0-8.3); Neutrophils Percent Auto 53.8 % (45-73); Platelet Count 298 X10*3/uL (160-400); Red Blood Count 4.32 X10*6/uL (4.20-5.50); Red Cell Distribution Width 13.2 % (11.0-16.0); White Blood Count 6.1 X10*3/uL (4.8-10.8)
[2023-10-10 12:35] LABS: Appearance Urine Turbid; Color Urine Yellow; Glucose Urine UA Negative (Negative); Leukocyte Esterase Urine Small (1+) (Negative); Nitrite Urine Negative (Negative); PH 6.5 (5.0-9.0); Specific Gravity - Urine 1.025 (1.005-1.025); UMIC TRIGGER UA YES; Urine Blood Trace (Negative); Urine Ketones Negative (Negative); Urine Protein Trace mg/dL (Neg-Trace)
[2023-10-10 12:56] LABS: Bacteria Urine 4+ (None Seen); Hyaline Casts Urine 0-2 /LPF (0-2); Squamous Epithelial Cell Urine >20 /HPF (0-2)
[2023-10-10 16:34] LABS: Creatinine Urine 244.95 mg/dL; Microalbum/Creatinine Ratio Ur 5.8 ug/mg cr (<30); Microalbumin Urine 14.3 mg/L
[2023-10-10 21:38] LABS: Alanine Aminotransferase 16 U/L (0-31); Albumin Level 4.3 g/dL (3.5-5.0); Alkaline Phosphatase 71 U/L (39-117); Anion Gap 13 (12-20); Aspartate Amino Transferase 17 U/L (5-31); Bilirubin Total 0.5 mg/dL (0.0-1.0); Blood Urea Nitrogen 13 mg/dL (9-16); Calcium 9.2 mg/dL (8.4-10.2); Carbon Dioxide 23 mmol/L (22-29); Chloride 108 mmol/L (96-108); Cholesterol 162 mg/dL (<200); Estimated Glomerular Filt Rate > 60; Glucose Fasting 87 mg/dL (60-99); HDL Cholesterol 69 mg/dL (>40); LDL Cholesterol Calculated 87 mg/dL (<100); Potassium 4.4 mmol/L (3.3-5.1); Sodium 140 mmol/L (135-145); TSH reflex Free T4 0.77 uIU/mL (0.32-4.0); Total Protein 7.2 g/dL (6.5-8.0); Triglycerides 33 mg/dL (<150)
== END 2023-10-10 11:48 | disposition home or self-care (01) ==
LOC: HO.LAB 11:47
PROVIDERS: PCP Family Medicine; Visit Provider Family Medicine
DX: Z00.00 Encounter for general adult medical examination without abnormal findings (principal); I10 Essential (primary) hypertension
CPT/HCPCS: 36415; 80053; 80061; 81001; 82043; 82570; 84443; 85025

== ENCOUNTER → 2023-10-14 16:02 | Outpatient (AMB) | payer OTHER, SELFPAY ==
--- NOTE | 2023-10-14 15:59 | MHC.PC.OV ---
Intake Visit Reasons: f/u CPE-labs via telemedicine Intake Note: Follow up labs Allergies amoxicillin Allergy (Mild, Verified 10/14/23 16:00) skin rash Seasonal Allergies Allergy (Verified 10/14/23 16:00) STUFFY NOSE, SORE THROAT Tobacco use date assessed: 09/03/23 Dental Screening Dental Screen Date: 09/03/23 HPI f/u CPE-labs via telemedicine HPI Details 28 y/o female presents to review CPE-labs via telemedicine. Labs were drawn 10/10/23. Reviewed labs with pt. Ongoing mild anemia. Triglycerides 33. TC 162. LDL 87. HDL 69. PFSH Medical History Fainting spell Allergies Surgical History History of resection of large bowel Family History Mother No problems noted. 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 Gilbert Winston, Marilyn Hartmann, Alon Mclean and colleagues, with an educational elton from [employer]. Physical exam (Primary Care) Tobacco/Smoking Status: Tobacco use Status Tobacco use date assessed 09/03/23 10/14/23 16:01 Patient Tobacco Use Status Never used Tobacco 10/14/23 16:01 e-Cigarette/Vaping Use Never Used 10/14/23 16:01 Thrive Assessment: Date of Thrive Assessment Date Thrive assessed 11/09/20 10/14/23 16:01 Telehealth Telehealth Telehealth Platform: Telephone Location of provider rendering services: practice address Location of patient: address on file Patient Identification confirmed using: Name, : Yes Telehealth method: voice only Patient verbally consented to treatment: Yes Patient verbally consented to billing insurance company: Yes Patient informed of any privacy concerns related to visit: Yes Minutes spent on Phone/Video with Pt.: 5 Assessment and Plan Assessment & Plan (1) Mild anemia: Code(s): D64.9 - Anemia, unspecified Plan: Patient?says?she?had?just?finished?her period. Very?mild?anemia Encouraged?diet?with?plenty?of?iron No?need?for?supplement?at?this?time (2) ASB (asymptomatic bacteriuria): Code(s): R82.71 - Bacteriuria Plan: Likely?some?contamination?as?patient?just?finished?her period. No?symptoms Encouraged?good?hydration (3) Anxiety and depression: Code(s): F41.9 - Anxiety disorder, unspecified; F32.9 - Major depressive disorder, single episode, unspecified Plan: Followed?by?psychiatry?and?therapy No?changes?to?current?medication?regimen Follow-up?with?behavioral?health?team?as?recommended Orders: Orders Lipid Panel Today Z00.00 - Encounter for general adult medical examination without abnormal findings Microalbumin, Random (w Creat) Today I10 - Essential (primary) hypertension TSH reflex Free T4 Today Z00.00 - Encounter for general adult medical examination without abnormal findings UA and rflx microscopic Today Z00.00 - Encounter for general adult medical examination without abnormal findings Comprehensive [place]. Panel Fast Today Z00.00 - Encounter for general adult medical examination without abnormal findings Complete Blood Count Auto Diff Today Z00.00 - Encounter for general adult medical examination without abnormal findings Coding Level of Care Code Tele Est Pt Level 2 (91325) Diagnoses Mild anemia D64.9 ASB (asymptomatic bacteriuria) R82.71 Anxiety and depression F41.9; F32.9
== END ==
LOC: HO.HMGFM 16:02
PROVIDERS: PCP Family Medicine; Visit Provider Family Medicine
DX: D64.9 Anemia, unspecified (principal); R82.71 Bacteriuria; F41.9 Anxiety disorder, unspecified; F32.9 Major depressive disorder, single episode, unspecified
CPT/HCPCS: 99212

== ENCOUNTER 2023-11-27 10:06 | Outpatient (AMB) | payer OTHER, SELFPAY ==
--- NOTE | 2023-11-27 10:15 | A.OFFPC_ITS ---
Vital Signs 11/27/23 10:17 Height 5 ft 11 in Weight 229 lb 8 oz BMI 32.0 BP 96/56 L Blood Pressure Location Lt brachial Position Sitting Respiration 16 Pulse 80 Pulse Source Pulse Oximeter Temp 99.2 F Temp Source Oral Pulse Oximetry (%) 96 Oxygen Delivery Method Room Air Intake Visit Reasons: Urinary tract infection Intake Note: Had a UTI a week and a half ago. Didn't take antibiotic faithfully and thinks she still may have infection. Discomfort while urinating. Allergies amoxicillin Allergy (Mild, Verified 11/27/23 10:16) skin rash Seasonal Allergies Allergy (Verified 11/27/23 10:16) STUFFY NOSE, SORE THROAT Tobacco use date assessed: 09/03/23 Dental Screening Dental Screen Date: 09/03/23 HPI HPI Comments History of Present Illness Details This is a 28-year-old female with a past medical history of anemia, seasonal allergies and anxiety and depression presenting for a sick visit. Patient says she was seen at the [facility] in [place] on 11/15/2023 for UTI symptoms. She initially presented with pain at the end of urinating, urinary urgency and bladder pressure. Patient says they did a urine test in the office. She says it was consistent with a UTI. She was treated with a 5 day course of antibiotics that she was supposed to take twice a day. Patient says that she did not take the antibiotics as prescribed. She missed a day or so and also was not taking it consistently twice a day. She has improved in terms of symptoms, but she still has mild bladder pressure and mild pain with urination. She has been drinking a lot of fluids. She denies history of kidney stones. No abnormal vaginal bleeding (patient states menses is just starting). No vaginal discharge or itching. Denies fevers, chills, back or abdominal pain, nausea or vomiting. Of note, she does have a low-grade temp today of 99.2. No cough or congestion or other sick symptoms. ROS: Constitutional: No unexplained weight loss, fever, chills, fatigue or night sweats. Gastrointestinal: No anorexia, nausea, vomiting or diarrhea. No abdominal pain or blood in stool. Genitourinary: No hematuria, see HPI Skin: No rash Physical exam: Constitutional: Alert, in no distress. Head: Normocephalic. Eyes: Pupils are equal, round and reactive to light. Extraocular muscles intact. Ear, Nose and Throat: Canals clear. TMs normal. Normal nasal mucosa. No nasal discharge. No oral lesions. Neck: Supple, Full range of motion. No lymphadenopathy. Respiratory: Clear to auscultation. Cardiovascular: S1 S2 regular. No murmurs. Gastrointestinal: Abdomen soft, non-tender, non-distended. Normal bowel sounds. No palpable masses. Genitourinary: No costovertebral angle tenderness. Psychiatric: Normal mood and affect [facility] Medical History (Updated 11/27/23 @ 10:42 by HERMES Aguirre) UTI symptoms Dysuria Fainting spell Allergies Surgical History History of resection of large bowel Family History Mother No problems noted. Father Mental health disorder Substance abuse Social History Housing: House Alcohol intake: current Alcohol intake frequency: holidays/special occasions only Patient Tobacco Use Status: Never used Tobacco e-Cigarette/Vaping Use: Never Used Second Hand Smoke Exposure: No service: No Current occupational status: employed and student Current occupation: [employer] Current occupational exposures/hazards: No Cognitive needs: No Hearing needs: No Vision needs: No Questionnaire Thrive Questionnaire Date Thrive assessed: 11/09/20 ELODIA-7 AMB Questionnaire ELODIA-7 Date ELODIA - 7 assessed: 09/03/23 Source: Developed by Drs. Gilbert Winston, Marilyn Hartmann, Alon Mclean and colleagues, with an educational elton from [employer]. Physical exam (Primary Care) Vital Signs: Last Vital Signs Temp 99.2 F 11/27/23 10:17 Pulse 80 11/27/23 10:17 Resp 16 11/27/23 10:17 BP 96/56 L 11/27/23 10:17 Pulse Ox 96 11/27/23 10:17 Oxygen Delivery Method Room Air 11/27/23 10:17 BMI result Body Mass Index 32.0 Tobacco/Smoking Status: Tobacco use Status Tobacco use date assessed 09/03/23 11/27/23 10:21 Patient Tobacco Use Status Never used Tobacco 11/27/23 10:21 e-Cigarette/Vaping Use Never Used 11/27/23 10:21 Thrive Assessment: Date of Thrive Assessment Date Thrive assessed 11/09/20 11/27/23 10:21 Results AMB Urinalysis Dipstick UR Leukocytes Negative Last Edit by Rachel Gordon, JESUS on 11/27/23 10:26 UR Nitrite Negative Last Edit by Rachel Gordon, [employer] on 11/27/23 10:26 UR Urobilinogen Normal Last Edit by Rachel Gordon, [facility] on 11/27/23 10:26 UR Protein Trace Last Edit by Rachel Gordon, [employer] STRESS ENG[employer] on 11/27/23 10:26 UR Ph 5.5 Last Edit by Rachel Gordon, [facility] on 11/27/23 10:26 UR Blood Last Edit by Rachel Gordon, [facility] on 11/27/23 10:26 UR Specific [place] 1.015 Last Edit by Rachel Gordon, [facility] on 11/27/23 10: 26 UR Ketone Negative Last Edit by Rachel Gordon, [facility] on 11/27/23 10:26 UR Bilirubin Negative Last Edit by Rachel Gordon, [facility] on 11/27/23 10:26 UR Glucose Negative Last Edit by Rachel Gordon, [facility] on 11/27/23 10:26 Results Reviewed Results Reviewed: Laboratory Last Values Urine pH (Clinic) 5.5 11/27/23 10:23 Specific [place] (Clinic) 1.015 11/27/23 10:23 Ur Protein (Clinic) Trace 11/27/23 10:23 Ur Ketones (Clinic) Negative 11/27/23 10:23 Urine Nitrite Negative 11/27/23 10:23 Urine Bilirubin (Clinic) Negative 11/27/23 10:23 Urobilinogen (Clinic) Normal 11/27/23 10:23 Leukocyte Esterase (Clinic) Negative 11/27/23 10:23 Urine Glucose (Clinic) Negative 11/27/23 10:23 Assessment and Plan Assessment & Plan (1) UTI symptoms: Code(s): R39.9 - Unspecified symptoms and signs involving the genitourinary system Plan We will request the records from urgent care and what antibiotic she was prescribed. Urine dip only with protein today. Patient appears well and she denies symptoms concerning for complicated UTI/pyelonephritis, but given low-grade temp today and duration since taking antibiotics and initial symptoms I am sending ciprofloxacin to cover for possible early complicated UTI/pyelonephritis. Patient advised even if she is on antibiotics that if she is clinically worsening and develops fevers, chills, back pain, nausea or vomiting she should go to the ER. She agrees. Reviewed side effects and U/S box warning for ciprofloxacin regarding tendinopathy, tendon rupture, PHYSICIAN GYNECOLOGIST effects and neuropathy. Increase fluid intake. UA and culture ordered. Orders: Orders AMB Urinalysis Dipstick Today R30.0 - Dysuria UA w Microscopic Today R30.0 - Dysuria Urine Culture Today R30.0 - Dysuria Medications: New ciprofloxacin HCl 500 mg PO Q12H 14 tabs 0RF Coding Level of Care Code Est Pt Level 4 (82470) Complex EM visit Add On G2211 Diagnoses UTI symptoms R39.9
[2023-11-27 10:17] VITALS: BP 96/56; PULSE 80; RESP 16; TEMP 37.3; O2SAT 96; BMI 32.0
== END 2023-11-27 10:39 | disposition home or self-care (01) ==
PROVIDERS: PCP Family Medicine; Visit Provider Physician Assistant Medical
DX: R30.0 Dysuria (principal); R39.9 Unspecified symptoms and signs involving the genitourinary system
CPT/HCPCS: 81002; 99214; G2211

== ENCOUNTER 2023-11-27 14:18 | Outpatient (REF) | payer OTHER, SELFPAY | END 2023-11-27 14:19 | disposition home or self-care (01) | LOC: HO.LNP 14:18 | PROVIDERS: Visit Provider Physician Assistant Medical | DX: R30.0 Dysuria (principal) | CPT/HCPCS: 87086 ==

== ENCOUNTER 2023-12-15 09:57 | Outpatient (AMB) | payer OTHER, SELFPAY ==
--- NOTE | 2023-12-15 10:08 | MHC.PC.OV ---
Vital Signs 12/15/23 10:11 Height 5 ft 11 in Weight 234 lb 2 oz BMI 32.7 BP 92/58 L Blood Pressure Location Lt brachial Position Sitting Respiration 16 Pulse 68 Pulse Source Pulse Oximeter Pulse Oximetry (%) 99 Oxygen Delivery Method Room Air Intake Visit Reasons: back pain Intake Note: Back pain lower back. Allergies amoxicillin Allergy (Mild, Verified 12/15/23 10:08) skin rash Seasonal Allergies Allergy (Verified 12/15/23 10:08) STUFFY NOSE, SORE THROAT Tobacco use date assessed: 09/03/23 Dental Screening Dental Screen Date: 09/03/23 HPI HPI Comments History of Present Illness Details This is a 28-year-old female with a past medical history of anemia, seasonal allergies and anxiety and depression presenting for right lower back pain. 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 The exercise called for her to kneel while extending her upper body to the left. After the class she developed pain in her right lower back. She says it is near where her back meets her hip. Pain is a 5/10. It is described as aching. The muscles feel tight. She took Tylenol yesterday without much improvement. She has been doing some gentle stretching yoga stretches and avoiding the gym. The pain radiates a little bit to the lateral hip. It does not radiate down her leg. There is no loss of bowel or bladder control or numbness or tingling associated with the pain. She had a similar injury in the past which required physical therapy. She said this did not take the pain away, and ultimately taking a muscle relaxer alleviated her symptoms. The pain is worse when she is moving in her bed. ROS: Constitutional: No fevers or chills. Gastrointestinal: No abdominal pain Genitourinary: No dysuria, hematuria, urinary frequency. Skin: No rash Physical exam: Constitutional: Alert, in no distress. Respiratory: Clear to auscultation. Cardiovascular: S1 S2 regular. No murmurs Gastrointestinal: Abdomen soft, non-tender, non-distended. Normal bowel sounds. Genitourinary: No costovertebral angle tenderness. Neurologic: No focal neurological deficits. Symmetric patellar reflexes.. Musculoskeletal: The right lumbar paraspinal muscles and SI area are tender to palpation. Patient has full range of motion but pain with extension and lateral bending. Negative straight leg raises bilaterally. Lower extremity strength 5/5. Bilateral lower extremity sensation intact. No midline spinal tenderness. Extremities: Warm and well perfused. No clubbing, cyanosis or edema. 3+ peripheral pulses bilaterally. [facility] Medical History (Updated 11/27/23 @ 10:42 by HERMES Aguirre) UTI symptoms Dysuria Fainting spell Allergies Surgical History History of resection of large bowel Family History Mother No problems noted. 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 Gilbert Winston, Marilyn Hartmann, Alon Mclean and colleagues, with an educational elton from [employer]. Physical exam (Primary Care) Vital Signs: Last Vital Signs Pulse 68 12/15/23 10:11 Resp 16 12/15/23 10:11 BP 92/58 L 12/15/23 10:11 Pulse Ox 99 12/15/23 10:11 Oxygen Delivery Method Room Air 12/15/23 10:11 BMI result Body Mass Index 32.7 Tobacco/Smoking Status: Tobacco use Status Tobacco use date assessed 09/03/23 12/15/23 10:12 Patient Tobacco Use Status Never used Tobacco 12/15/23 10:12 e-Cigarette/Vaping Use Never Used 12/15/23 10:12 Thrive Assessment: Date of Thrive Assessment Date Thrive assessed 11/09/20 12/15/23 10:12 Assessment and Plan Assessment & Plan (1) Right low back pain: Code(s): M54.5 - Low back pain Plan: Patient will be treated for musculoskeletal strain. Recommended Aleve 1 pill twice daily with food for 3-5 days. Prescribed cyclobenzaprine 1-2 tablets every 8 hours as needed for pain or spasm. Patient advised not to drive, work or operate heavy machinery with this medication due to sedation. Patient declines referral for chiropractor and/or PT today. If symptoms do not resolve over the next 1-2 weeks she will call for referral. Warning signs warranting ER evaluation reviewed. Medications: New cyclobenzaprine 5 - 10 mg (1 - 2 x 5 mg) PO Q8H 20 tabs 0RF muscle spasm Coding Level of Care Code Est Pt Level 4 (68531) Diagnoses Right low back pain M54.5
[2023-12-15 10:11] VITALS: BP 92/58; PULSE 68; RESP 16; O2SAT 99; BMI 32.7
== END 2023-12-15 10:32 | disposition home or self-care (01) ==
PROVIDERS: PCP Family Medicine; Visit Provider Physician Assistant Medical
DX: M54.50 Low back pain, unspecified (principal)

== ENCOUNTER → 2023-12-15 09:57 | Outpatient (BNVA) | payer OTHER, SELFPAY | PROVIDERS: PCP Family Medicine; Visit Provider Physician Assistant Medical | DX: M54.50 Low back pain, unspecified (principal) | CPT/HCPCS: 99212 ==

== ENCOUNTER 2024-02-03 11:50 | Outpatient (AMB) | payer OTHER, SELFPAY ==
--- NOTE | 2024-02-03 11:52 | MHC.PC.OV ---
Vital Signs 02/03/24 11:55 Height 5 ft 11 in Weight 219 lb 2 oz BMI 30.6 BP 92/62 Blood Pressure Location Lt brachial Position Sitting Pulse 74 Pulse Source Pulse Oximeter Pulse Oximetry (%) 98 Oxygen Delivery Method Room Air Intake Visit Reasons: FlashesOfLightOnVission Intake Note: Flash of blue light in peripheral vision. Happens once a week over the past two years. Allergies amoxicillin Allergy (Mild, Verified 02/03/24 11:54) skin rash Seasonal Allergies Allergy (Verified 02/03/24 11:54) STUFFY NOSE, SORE THROAT Tobacco use date assessed: 09/03/23 Dental Screening Dental Screen Date: 09/03/23 HPI HPI Comments History of Present Illness Details 28 year old with past medical history of anemia, anxiety, depression presenting for eye problems Reports for the past 2 years but more frequent over the past few months she has had blue flashes of light in her peripheral vision. She denies history of diabetes, rheumatologic disorders. No know vision issues in past. ROS see HPI PHYSICAL EXAM: GENERAL: Alert and oriented x 3. NAD EYES: EOMI. Anicteric. HENT: Moist mucous membranes. No scleral icterus. No cervical lymphadenopathy. LUNGS: Clear to auscultation bilaterally. CARDIOVASCULAR: Regular rate and rhythm. No murmur. No JVD. ABDOMEN: Soft, non-tender +bs EXTREMITIES: No edema. Non-tender. SKIN: No rashes or lesions. Warm. NEUROLOGIC: No focal neurological deficits. CN II-XII grossly intact PSYCHIATRIC: Cooperative. Appropriate mood and affect [facility] Medical History (Updated 02/03/24 @ 12:06 by Gaby Wooten MD) UTI symptoms Dysuria Fainting spell Allergies Surgical History History of resection of large bowel Family History Mother No problems noted. 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 Current occupational exposures/hazards: No Cognitive needs: No Hearing needs: No Vision needs: No Questionnaire Thrive Questionnaire Date Thrive assessed: 11/09/20 I am a: Patient What is your living situation today?: I have a steady place to live Within the past 12 months, did the food you bought not last and you didn't have the money to get more?: I choose not to answer this question Within the past 12 months, did you worry whether your food would run out before you got money to buy more?: I choose not to answer this question Do you have trouble paying for medicines?: I choose not to answer this question Do you have trouble getting transportation to medical appointments?: I choose not to answer this question Do you have trouble paying your heating and electricity bill?: I choose not to answer this question Do you have trouble taking care of your child, family member or friend?: I choose not to answer this question Do you have trouble with day-to-day activities such as bathing, preparing meals, shopping, managing finances, etc.?: I choose not to answer this question Are you currently unemployed and looking for a job?: I choose not to answer this question Are you interested in more education?: I choose not to answer this question Please select the resources that you would like help with: None Currently or been in a relationship where the following occur: No concerns reported and I choose not to answer THRIVE Score: 0 AUDIT C Alcohol Use Questionnaire (AUDIT-C) 1. How often do you have a drink containing alcohol?: Monthly or less 2. How many drinks containing alcohol do you have on a typical day when you are drinking?: 1 or 2 3. How often do you have six or more drinks on one occasion?: Never Total Score: 1 ELODIA-7 AMB Questionnaire ELODIA-7 Date ELODIA - 7 assessed: 09/03/23 Feeling nervous, anxious, or on edge: 1 = Several days Not being able to stop or control worryin = Several days Worrying too much about different things: 1 = Several days Trouble relaxin = Several days Being so restless that it is hard to sit still: 1 = Several days Becoming easily annoyed or irritable: 1 = Several days Feeling afraid as if something awful might happen: 1 = Several days Total ELODIA-7 score (0-4 normal; 5-9 mild; 10-14 moderate; 15-21 severe): 7 Source: Developed by Drs. Gilbert Winston, Marilyn Hartmann, Alon Mclean and colleagues, with an educational elton from [employer]. Physical exam (Primary Care) Vital Signs: Last Vital Signs Pulse 74 02/03/24 11:55 BP 92/62 02/03/24 11:55 Pulse Ox 98 02/03/24 11:55 Oxygen Delivery Method Room Air 02/03/24 11:55 BMI result Body Mass Index 30.6 Tobacco/Smoking Status: Tobacco use Status Tobacco use date assessed 09/03/23 02/03/24 11:57 Patient Tobacco Use Status Never used Tobacco 02/03/24 11:57 e-Cigarette/Vaping Use Never Used 02/03/24 11:57 Thrive Assessment: Date of Thrive Assessment Date Thrive assessed 11/09/20 02/03/24 11:57 Currently or been in a relationship where the following occur: No concerns reported and I choose not to answer Coding Level of Care Code Est Pt Level 4 (64097) Diagnoses Photopsia H53.19 Assessment & Plan Assessment & Plan (1) Photopsia: Code(s): H53.19 - Other subjective visual disturbances Category: Medical Plan: Referral to ophtho, MRI ordered Orders: Orders MR head/brain wo con Today H53.19 - Other subjective visual disturbances Referrals Ophthalmology Referral H53.19 - Other subjective visual disturbances
[2024-02-03 11:55] VITALS: BP 92/62; PULSE 74; O2SAT 98; BMI 30.6
== END 2024-02-03 16:40 | disposition home or self-care (01) ==
PROVIDERS: PCP Family Medicine; Visit Provider Internal Medicine
DX: H53.19 Other subjective visual disturbances (principal)

== ENCOUNTER → 2024-02-03 11:50 | Outpatient (BNVA) | payer OTHER, SELFPAY | PROVIDERS: PCP Family Medicine; Visit Provider Internal Medicine | DX: H53.19 Other subjective visual disturbances (principal) | CPT/HCPCS: 99212 ==

== ENCOUNTER 2024-03-10 13:06 | Outpatient (AMB) | payer OTHER, SELFPAY ==
[2024-03-10 13:15] VITALS: BP 106/62; PULSE 62; O2SAT 99; BMI 31.0
--- NOTE | 2024-03-10 13:15 | A.OFFPC_ITS ---
Vital Signs 03/10/24 13:15 Height 5 ft 11 in Weight 222 lb 8 oz BMI 31.0 BP 106/62 Blood Pressure Location Rt brachial Position Sitting Pulse 62 Pulse Source Pulse Oximeter Pulse Oximetry (%) 99 Oxygen Delivery Method Room Air Intake Visit Reasons: back pain Intake Note: Lower back pain Allergies amoxicillin Allergy (Mild, Verified 03/10/24 13:15) skin rash Seasonal Allergies Allergy (Verified 03/10/24 13:15) STUFFY NOSE, SORE THROAT Medication List - Last Reconciled 03/10/24 by Darlene Darnell PA-C acyclovir 5% (Zovirax) 1 appl topical 3XD 7 days bupropion HCl XL 300 mg PO QAM calcium polycarbophil (FiberCon) 625 mg PO DAILY 90 days cetirizine (Zyrtec) 10 mg PO DAILY PRN cyclobenzaprine 5 - 10 mg (1 - 2 x 5 mg) PO Q8H lurasidone (Latuda) 20 mg PO DAILY valacyclovir 500 mg PO DAILY Tobacco use date assessed: 09/03/23 Dental Screening Dental Screen Date: 09/03/23 HPI back pain HPI Details History of Present Illness The patient is a 29-year-old female presenting with low back pain radiating to the left leg. The symptoms began on Friday with pain initially localized on the left lower back, radiating downward to the gluteal and into the hamstring region. The patient describes the sensation as a spasm different from previous back pain experiences and micki to sciatica. The onset of pain coincided with increased activity, including walking to class and a subsequent exam. An attempted stretch aggravated the symptoms significantly. The patient previously received a muscle relaxant for back pain, which temporarily alleviated symptoms. No history of trauma or heavy lifting was reported. The pain worsens with sideways movements or uneven shifts in body posture, and there is no associated numbness or tingling. A prior episode of back pain required physical therapy, which she reports being effective. The patient's mother experienced similar symptoms during her teenage years. Health Maintenance Social History - [employer] ([facility]) - Lives in [place] - Noted history of walking significant d istances on campus Review of Systems - Musculoskeletal: Reports pain radiatin g from the left lower back to the gluteal region and down the hamstring area - Neurological: Denies numbness or tingl ing - Urinary: Denies urinary symptoms Physical Exam - Cardiovascular- Heart sounds normal - Respiratory- Lungs clear to auscultati on - Musculoskeletal- No tenderness along t he spine; sensitive in the lumbar region left side, particularly at the top of the hip, gluteal area tense - Neurological- Straight leg raise cause s tightness in the back but no pain in the right leg Results Plan - Prescribe Naproxen 500 mg orally twice daily for two weeks - Referral to physical therapy for manag ement of low back pain - Use muscle relaxants as needed - Advise gentle stretching with applicat ion of heat followed by ice Patient was informed and verbally consented to the use of an ambient scribe for clinic note documentation during this visit. Discussion Notes I discussed with the patient the likelihood of lumbar radiculopathy, possibly sciatica, and explained the management plan involving anti-inflammatory medication, physical therapy, and muscle relaxants. I informed her of potential next steps, including imaging or specialist referral, should the conservative approach not yield improvement. We discussed alarm symptoms, such as loss of bladder or bowel control, which would necessitate urgent evaluation. The patient was informed about the benefits of using Naproxen given its dosing convenience over ibuprofen and the complementary role of muscle relaxants. Follow-up with physical therapy was recommended, with the reassurance that most back pain cases improve with conservative management. Patient Instructions - Take Naproxen as prescribed, twice raul ly, for up to two weeks - Apply heat to the affected area before stretching and use ice afterward to reduce inflammation - Engage in prescribed physical therapy exercises to improve back strength and flexibility - Monitor for any serious symptoms such as difficulty urinating, or numbness in the legs, and seek medical attention if they occur - Follow up with physical therapy and re turn to care if symptoms do not improve or worsen [facility] Medical History (Updated 03/10/24 @ 13:33 by Darlene Darnell PA-C) UTI symptoms Dysuria Fainting spell Allergies Surgical History History of resection of large bowel Family History Mother No problems noted. 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 Current occupational exposures/hazards: No Cognitive needs: No Hearing needs: No Vision needs: No Questionnaire Thrive Questionnaire Date Thrive assessed: 02/03/24 I am a: Patient What is your living situation today?: I have a steady place to live Within the past 12 months, did the food you bought not last and you didn't have the money to get more?: I choose not to answer this question Within the past 12 months, did you worry whether your food would run out before you got money to buy more?: I choose not to answer this question Do you have trouble paying for medicines?: I choose not to answer this question Do you have trouble getting transportation to medical appointments?: I choose not to answer this question Do you have trouble paying your heating and electricity bill?: I choose not to answer this question Do you have trouble taking care of your child, family member or friend?: I choose not to answer this question Do you have trouble with day-to-day activities such as bathing, preparing meals, shopping, managing finances, etc.?: I choose not to answer this question Are you currently unemployed and looking for a job?: I choose not to answer this question Are you interested in more education?: I choose not to answer this question Please select the resources that you would like help with: None THRIVE Score: 0 ELODIA-7 AMB Questionnaire ELODIA-7 Date ELODIA - 7 assessed: 09/03/23 Source: Developed by Drs. Gilbert Winston, Marilyn Hartmann, Alon Mclean and colleagues, with an educational elton from [employer]. Physical exam (Primary Care) Vital Signs: Last Vital Signs Pulse 62 03/10/24 13:15 BP 106/62 03/10/24 13:15 Pulse Ox 99 03/10/24 13:15 Oxygen Delivery Method Room Air 03/10/24 13:15 BMI result Body Mass Index 31.0 Tobacco/Smoking Status: Tobacco use Status Tobacco use date assessed 09/03/23 03/10/24 13:19 Patient Tobacco Use Status Never used Tobacco 03/10/24 13:19 e-Cigarette/Vaping Use Never Used 03/10/24 13:19 Thrive Assessment: Date of Thrive Assessment Date Thrive assessed 02/03/24 03/10/24 13:19 Const Orientation/consciousness: patient oriented x3 HENMT Ears: hearing grossly normal bilaterally Neck Thyroid: Thyroid normal Lymphatic: no lymphadenopathy noted Resp Auscultation: clear to auscultation bilaterally Cardio Rate: regular rate Rhythm: regular rhythm Heart sounds: S1 normal heart sound present and S2 normal heart sound present GI Inspection: Yes normal to inspection Palpation (GI): Soft to palpation and Other GI palpation findings present (nontender, no cva tenderness) Auscultation: normoactive bowel sounds Rectal Exam - Female: deferred Skin General skin exam: no rashes or lesions noted Neuro General: patient oriented x3, gait normal and no focal motor deficits Coding Level of Care Code Est Pt Level 3 (53383) Diagnoses Lumbar pain with radiation down left leg M54.50; M79.605 Assessment & Plan Assessment & Plan (1) Lumbar pain with radiation down left leg: Code(s): M54.50 - Low back pain, unspecified; M79.605 - Pain in left leg Category: Medical Plan: see hpi Orders: Orders PT Evaluation and Treatment Today M54.50 - Low back pain, unspecified, M79.605 - Pain in left leg Medications: New naproxen 500 mg PO BID PRN 60 tabs 0RF pain cyclobenzaprine 10 mg PO TID PRN 30 tabs 0RF muscle spasm Discontinued cyclobenzaprine Discontinued Reason: Doctor's Order 5 - 10 mg (1 - 2 x 5 mg) PO Q8H 20 tabs 0RF muscle spasm
== END 2024-03-10 13:36 | disposition home or self-care (01) ==
PROVIDERS: PCP Family Medicine; Visit Provider Physician Assistant
DX: M54.50 Low back pain, unspecified (principal); M79.605 Pain in left leg

== ENCOUNTER → 2024-03-10 13:06 | Outpatient (BNVA) | payer OTHER, SELFPAY | PROVIDERS: PCP Family Medicine; Visit Provider Physician Assistant | DX: M54.50 Low back pain, unspecified (principal); M79.605 Pain in left leg | CPT/HCPCS: 99212 ==

== ENCOUNTER 2024-03-15 11:00 | Outpatient (REF) | payer OTHER, SELFPAY | END 2024-03-15 11:01 | disposition home or self-care (01) | LOC: HO.MRI 11:00 | PROVIDERS: PCP Family Medicine; Visit Provider Internal Medicine | DX: H53.19 Other subjective visual disturbances (principal) | CPT/HCPCS: 70551 ==

== ENCOUNTER 2024-09-13 11:48 | Outpatient (AMB) | payer OTHER, SELFPAY ==
--- NOTE | 2024-09-13 11:51 | A.OFFPC_ITS ---
Vital Signs 09/13/24 11:57 Height 5 ft 11 in Weight 195 lb 2 oz BMI 27.2 BP 108/58 L Blood Pressure Location Lt brachial Position Sitting Respiration 14 Pulse 69 Pulse Source Pulse Oximeter Pulse Oximetry (%) 97 Oxygen Delivery Method Room Air Oxygen Flow Rate 98.3 Intake Visit Reasons: Sinus Infection Intake Note: Symptom started two weeks ago. Sore throat, Yellow phlegm. Platars fasciitis on both feet, mostly the right. in sinus Sas Developer Required: No Allergies amoxicillin Allergy (Mild, Verified 09/13/24 12:09) skin rash Seasonal Allergies Allergy (Verified 09/13/24 12:09) STUFFY NOSE, SORE THROAT Tobacco use date assessed: 09/13/24 Dental Screening Dental Screen Date: 09/13/24 Did you have a dental visit in the last 12 months?: Yes Did you have a dental problem in the last 6 months where you did not have access to dental care?: No Was dental information given to patient?: Patient has dentist HPI HPI Comments History of Present Illness Details 28 year old with past medical history of anemia, anxiety, depression presenting for sinus congestion sinus congestion, post nasal drip, ear fullness and production of yellow phlegm x 2 weeks. Taking decongestant. No fevers Issues with onset of plantar fasciitis. She is not doing stretches or ice at present. Usually wearing good foot wear ROS see HPI PHYSICAL EXAM: GENERAL: Alert and oriented x 3. NAD EYES: EOMI. Anicteric. HENT: Moist mucous membranes. bilateral clear middle ear effusions, erythematous oropharynx LUNGS: Clear to auscultation bilaterally. CARDIOVASCULAR: Regular rate and rhythm. No murmur. No JVD. ABDOMEN: Soft, non-tender +bs EXTREMITIES: No edema. Non-tender. SKIN: No rashes or lesions. Warm. NEUROLOGIC: No focal neurological deficits. CN II-XII grossly intact PSYCHIATRIC: Cooperative. Appropriate mood and affect [facility] Medical History UTI symptoms Dysuria Fainting spell Allergies Surgical History History of resection of large bowel Family History Mother No problems noted. 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 1. Little interest or pleasure in doing things: not at all 2. Feeling down, depressed, or hopeless: not at all 3. Trouble falling or staying asleep, or sleeping too much: not at all 4. Feeling tired or having little energy: not at all 5. Poor appetite or overeating: not at all 6. Feeling bad about yourself - or that you are a failure or have let yourself or your family down: not at all 7. Trouble concentrating on things, such as reading the newspaper or watching television: not at all 8. Moving or speaking so slowly that other people could have noticed. Or the opposite - being so fidgety or restless that you have been moving around a lot more than usual: not at all 9. Thoughts that you would be better off or of hurting yourself in some way: not at all Total score: 0 Depression Screening Interpretation: Negative Depression Screening Done: Yes 51464 - PHQ-9 Billing: Yes Source: Developed by Drs. Gilbert Winston, Marilyn Hartmann, Alon Mclean and colleagues, with an educational elton from [employer] Thrive Questionnaire Date Thrive assessed: 02/03/24 I am a: Patient What is your living situation today?: I have a steady place to live Within the past 12 months, did the food you bought not last and you didn't have the money to get more?: I choose not to answer this question Within the past 12 months, did you worry whether your food would run out before you got money to buy more?: I choose not to answer this question Do you have trouble paying for medicines?: I choose not to answer this question Do you have trouble getting transportation to medical appointments?: I choose not to answer this question Do you have trouble paying your heating and electricity bill?: I choose not to answer this question Do you have trouble taking care of your child, family member or friend?: I choose not to answer this question Do you have trouble with day-to-day activities such as bathing, preparing meals, shopping, managing finances, etc.?: I choose not to answer this question Are you currently unemployed and looking for a job?: I choose not to answer this question Are you interested in more education?: I choose not to answer this question Please select the resources that you would like help with: None Currently or been in a relationship where the following occur: No concerns reported THRIVE Score: 0 AUDIT C Alcohol Use Questionnaire (AUDIT-C) 1. How often do you have a drink containing alcohol?: Monthly or less 2. How many drinks containing alcohol do you have on a typical day when you are drinking?: 1 or 2 3. How often do you have six or more drinks on one occasion?: Never Total Score: 1 ELODIA-7 AMB Questionnaire ELODIA-7 Date ELODIA - 7 assessed: 09/03/23 Feeling nervous, anxious, or on edge: 1 = Several days Not being able to stop or control worryin = Not at all Worrying too much about different things: 0 = Not at all Trouble relaxin = Not at all Being so restless that it is hard to sit still: 0 = Not at all Becoming easily annoyed or irritable: 0 = Not at all Feeling afraid as if something awful might happen: 0 = Not at all Total ELODIA-7 score (0-4 normal; 5-9 mild; 10-14 moderate; 15-21 severe): 1 Source: Developed by Drs. Gilbert Winston, Marilyn Hartmann, Alon Mclean and colleagues, with an educational elton from [employer] Physical exam (Primary Care) Vital Signs: Last Vital Signs Pulse 69 09/13/24 11:57 Resp 14 09/13/24 11:57 BP 108/58 L 09/13/24 11:57 Pulse Ox 97 09/13/24 11:57 Oxygen Delivery Method Room Air 09/13/24 11:57 Oxygen Flow Rate 98.3 09/13/24 11:57 BMI result Body Mass Index 27.2 Tobacco/Smoking Status: Tobacco use Status Tobacco use date assessed 09/13/24 09/13/24 12:10 Patient Tobacco Use Status Never used Tobacco 09/13/24 12:10 e-Cigarette/Vaping Use Never Used 09/13/24 12:10 PHQ-9: PHQ-9 Score PHQ-9: Total score 0 09/13/24 12:09 Depression Screening Interpretation: Negative Thrive Assessment: Date of Thrive Assessment Date Thrive assessed 02/03/24 09/13/24 11:53 Currently or been in a relationship where the following occur: No concerns reported Coding Level of Care Code Est Pt Level 4 (37128) Diagnoses Subacute maxillary sinusitis J01.00 Sinusitis location: maxillary Chronicity: subacute Plantar fasciitis M72.2 Additional Codes PHQ-9 - 67506 - PHQ-9 Billing: Yes ([id number]) Assessment & Plan Assessment & Plan (1) Sinusitis: Code(s): J32.9 - Chronic sinusitis, unspecified Qualifiers: Sinusitis location: maxillary Chronicity: subacute Qualified Code(s): J01.00 - Acute maxillary sinusitis, unspecified (2) Plantar fasciitis: Code(s): M72.2 - Plantar fascial fibromatosis Plan sinusitis-doxycycline ordered. Advised to avoid the sun. rapid strep negative plantar fasciitis-exercises, walk fit [place], topical diclofenac. call for podiatry referral if no improvement Medications: New doxycycline hyclate 100 mg PO BID 20 tabs 0RF fluconazole may repeat second dose 72 hrs after first dose if symptoms persist 150 mg PO Q3D 2 tabs 0RF 2 doses diclofenac sodium 1% (Voltaren Arthritis Pain) apply to single knee, ankle, foot; for foot includes sole/toes/top of foot 4 grams topical QID 100 grams 0RF
[2024-09-13 11:57] VITALS: BP 108/58; PULSE 69; RESP 14; O2SAT 97; BMI 27.2
== END 2024-09-13 12:11 | disposition home or self-care (01) ==
LOC: HO.HMCFM 11:49
PROVIDERS: PCP Family Medicine; Visit Provider Internal Medicine
DX: J01.00 Acute maxillary sinusitis, unspecified (principal); M72.2 Plantar fascial fibromatosis

== ENCOUNTER → 2024-09-13 11:48 | Outpatient (BNVA) | payer OTHER, SELFPAY | PROVIDERS: PCP Family Medicine; Visit Provider Internal Medicine | DX: J01.00 Acute maxillary sinusitis, unspecified (principal); M72.2 Plantar fascial fibromatosis; Z13.30 Encounter for screening examination for mental health and behavioral disorders, unspecified | CPT/HCPCS: 96127; 99212 ==

== ENCOUNTER 2024-12-15 09:30 | Outpatient (AMB) | payer OTHER, SELFPAY ==
--- NOTE | 2024-12-15 09:44 | A.OFFPC_ITS ---
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: No Is last menstrual period known: Yes Last menstrual period: 11/24/24 Post menopausal: No Patient : No Allergies amoxicillin Allergy (Mild, Verified 12/15/24 09:49) skin rash Seasonal Allergies Allergy (Verified 12/15/24 09:49) STUFFY NOSE, SORE THROAT Medication List - Last Reconciled 12/15/24 by Jim Bee MD bupropion HCl SR 200 mg PO QAM calcium polycarbophil (FiberCon) 625 mg PO DAILY 90 days cetirizine (Zyrtec) 10 mg PO DAILY PRN cyclobenzaprine 10 mg PO TID PRN diclofenac sodium 1% (Voltaren Arthritis Pain) 4 grams topical QID lurasidone 60 mg PO DAILY naproxen 500 mg PO BID PRN valacyclovir 500 mg PO Q12H 14 days Tobacco use date assessed: 12/15/24 Dental Screening Dental Screen Date: 12/15/24 Did you have a dental visit in the last 12 months?: Yes Did you have a dental problem in the last 6 months where you did not have access to dental care?: No Was dental information given to patient?: Patient has dentist HPI Veins checked out (GET INS) HPI Details 29 y/o female presents today to f/u back pain. Reports ongoing back pain. Has an appt. with physical therapy. She notes cyclobenzaprine has helped significantly with the pain. Requesting referral to dermatology for a plantar wart. Has complaints of varicose veins. [facility] Medical History UTI symptoms Dysuria Fainting spell Allergies Surgical History History of resection of large bowel Family History Mother No problems noted. 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 Current occupational exposures/hazards: No Cognitive needs: No Hearing needs: No Vision needs: No Female Reproductive History Menstrual Date of last menstrual period: 11/24/24 Questionnaire Thrive Questionnaire Date Thrive assessed: 09/13/24 I am a: Patient What is your living situation today?: I have a steady place to live Within the past 12 months, did the food you bought not last and you didn't have the money to get more?: I choose not to answer this question Within the past 12 months, did you worry whether your food would run out before you got money to buy more?: I choose not to answer this question Do you have trouble paying for medicines?: I choose not to answer this question Do you have trouble getting transportation to medical appointments?: I choose not to answer this question Do you have trouble paying your heating and electricity bill?: I choose not to answer this question Do you have trouble taking care of your child, family member or friend?: I choose not to answer this question Do you have trouble with day-to-day activities such as bathing, preparing meals, shopping, managing finances, etc.?: I choose not to answer this question Are you currently unemployed and looking for a job?: I choose not to answer this question Are you interested in more education?: I choose not to answer this question Please select the resources that you would like help with: None Currently or been in a relationship where the following occur: No concerns reported THRIVE Score: 0 ELODIA-7 AMB Questionnaire ELODIA-7 Date ELODIA - 7 assessed: 09/03/23 Source: Developed by Drs. Gilbert Winston, Marilyn Hartmann, Alon Mclean and colleagues, with an educational elton from [employer]. Review of Systems Const Denies chills, Denies fatigue, Denies fever(s), Denies headache(s) and Denies w eakness ENT Denies dizziness and Denies headache(s) Card Denies dyspnea Resp Denies cough, Denies dyspnea, Denies wheezing and Denies other (shortness of breath) Musc Denies numbness and Denies tingling Neuro Denies dizziness, Denies headache(s), Denies numbness, Denies tingling and Denies weakness Psych Denies anxiety and Denies depression Endo Denies fatigue Aller/Immun Denies wheezing Physical exam (Primary Care) Vital Signs: Last Vital Signs Temp 97.9 F 12/15/24 09:52 Pulse 63 12/15/24 09:52 Resp 16 12/15/24 09:52 BP 105/59 L 12/15/24 09:52 Pulse Ox 100 12/15/24 09:52 Oxygen Delivery Method Room Air 12/15/24 09:52 BMI result Body Mass Index 27.6 Tobacco/Smoking Status: Tobacco use Status Tobacco use date assessed 12/15/24 12/15/24 09:54 Patient Tobacco Use Status Never used Tobacco 12/15/24 09:44 e-Cigarette/Vaping Use Never Used 12/15/24 09:44 Thrive Assessment: Date of Thrive Assessment Date Thrive assessed 09/13/24 12/15/24 09:44 Currently or been in a relationship where the following occur: No concerns reported Const General: well developed; No acute distress Nutritional Appearance: well nourished Orientation/consciousness: patient oriented x3 [facility]: Yes normocephalic and Yes atraumatic Eyes General: appearance normal, both eyes and all related structures Pupils: Equal, round and reactive pupils present EOM: EOMs intact bilaterally Resp Effort & Inspection: normal respiratory effort Neuro General: patient oriented x3 and gait normal Cranial nerves: Yes Equal, round and reactive pupils present Psych Affect: normal affect Coding Level of Care Code Est Pt Level 4 (05352) Diagnoses HSV (herpes simplex virus) infection B00.9 Sacroiliitis M46.1 Right low back pain M54.5 Varicose veins of both lower extremities I83.93 Plantar wart B07.0 Assessment & Plan Assessment & Plan (1) HSV (herpes simplex virus) infection: Code(s): B00.9 - Herpesviral infection, unspecified Category: Medical Plan: Recurrent outbreaks but no current outbreak today. Refilled valacyclovir (2) Sacroiliitis: Code(s): M46.1 - Sacroiliitis, not elsewhere classified Category: Medical Plan: Ongoing low back pain at right sacroiliac joint Had been refer to physical therapy in the past but this was never scheduled. Will reorder physical therapy. She should also use naproxen and can use some cyclobenzaprine as well as ice and heat. If not improving will image and refer to ortho (3) Right low back pain: Code(s): M54.5 - Low back pain Category: Medical Plan: As above (4) Varicose veins of both lower extremities: Code(s): I83.93 - Asymptomatic varicose veins of bilateral lower extremities Category: Medical Plan: Bilateral lower extremity varicose veins. Currently no pain or significant irritation Elevate legs Can try OTC compression stockings Avoid salt in sodium If not improving will send a script for prescription compression stockings (5) Plantar wart: Code(s): B07.0 - Plantar wart Category: Medical Plan: Referred to dermatology at patient request Orders: Orders Complete Blood Count Auto Diff Today Z00.00 - Encounter for general adult medical examination without abnormal findings Comprehensive [place]. Panel Fast Today Z00.00 - Encounter for general adult medical examination without abnormal findings Lipid Panel Today Z00.00 - Encounter for general adult medical examination without abnormal findings UA CC w/rflx Micro + Cult Today Z00.00 - Encounter for general adult medical examination without abnormal findings TSH reflex Free T4 Today Z00.00 - Encounter for general adult medical examination without abnormal findings PT Evaluation and Treatment Today M54.50 - Low back pain, unspecified, M79.605 - Pain in left leg Microalbumin, Random (w Creat) Today I10 - Essential (primary) hypertension Referrals Dermatology Referral B07.9 - Viral wart, unspecified Medications: Changed From valacyclovir 500 mg PO DAILY To valacyclovir 500 mg PO Q12H 28 tabs 4RF 14 days Refilled cyclobenzaprine 10 mg PO TID PRN 30 tabs 0RF muscle spasm naproxen 500 mg PO BID PRN 60 tabs 0RF pain
[2024-12-15 09:52] VITALS: BP 105/59; PULSE 63; RESP 16; TEMP 36.6; O2SAT 100; BMI 27.6
== END 2024-12-15 10:29 | disposition home or self-care (01) ==
LOC: HO.HMCFM 09:31
PROVIDERS: PCP Family Medicine; Visit Provider Family Medicine
DX: B00.9 Herpesviral infection, unspecified (principal); M46.1 Sacroiliitis, not elsewhere classified; M54.50 Low back pain, unspecified; I83.93 Asymptomatic varicose veins of bilateral lower extremities; B07.0 Plantar wart

== ENCOUNTER → 2024-12-15 09:30 | Outpatient (BNVA) | payer OTHER, SELFPAY | PROVIDERS: PCP Family Medicine; Visit Provider Family Medicine | DX: I10 Essential (primary) hypertension (principal); I83.93 Asymptomatic varicose veins of bilateral lower extremities; M46.1 Sacroiliitis, not elsewhere classified; B00.9 Herpesviral infection, unspecified; M54.50 Low back pain, unspecified; B07.0 Plantar wart | CPT/HCPCS: 99212 ==

== ENCOUNTER 2025-02-01 09:01 | Outpatient (REF) | payer OTHER, SELFPAY ==
[2025-02-01 11:10] LABS: MANUAL DIFF FLAG NO
[2025-02-01 11:21] LABS: Hematocrit 39.4 % (37.0-47.0); Hemoglobin 12.8 g/dl (12.0-16.0); Imm Gran Abs Auto 0.03 X10*3/uL (0.00-0.03); Imm Gran Pct Auto 0.3 % (0.0-0.4); Lymphocytes Absolute Auto 2.1 X10*3/uL (1.2-4.9); Mean Corpuscular HGB Conc 32.5 g/dl (31.0-35.0); Mean Corpuscular Hemoglobin 28.4 pg (27.0-33.0); Mean Corpuscular Volume 87.6 fL (80.0-98.0); NRBC Abs Auto 0.000 X10*3/uL (0.0-0.012); NRBC Pct Auto 0.0 /100WBC (0.0-0.2); Platelet Count 311 X10*3/uL (160-400); Red Blood Count 4.50 X10*6/uL (4.20-5.50); White Blood Count 9.5 X10*3/uL (4.8-10.8)
[2025-02-01 11:32] LABS: Appearance Urine Clear; Glucose Urine UA Negative (Negative); PH 5.5 (5.0-9.0); Specific Gravity - Urine 1.020 (1.005-1.025); UMIC TRIGGER UACC YES
[2025-02-01 11:51] LABS: Alanine Aminotransferase 20 U/L (0-31); Albumin Level 4.8 g/dL (3.5-5.0); Alkaline Phosphatase 78 U/L (39-117); Anion Gap 13 (12-20); Aspartate Amino Transferase 23 U/L (5-31); Blood Urea Nitrogen 18 mg/dL (9-16); Calcium 9.5 mg/dL (8.4-10.2); Carbon Dioxide 24 mmol/L (22-29); Chloride 107 mmol/L (96-108); Cholesterol 191 mg/dL (<200); Estimated Glomerular Filt Rate > 60; HDL Cholesterol 75 mg/dL (>40); Potassium 4.1 mmol/L (3.3-5.1); Sodium 140 mmol/L (135-145); Total Protein 7.6 g/dL (6.5-8.0); Triglycerides 63 mg/dL (<150)
[2025-02-01 11:53] LABS: Alanine Aminotransferase 23 U/L (0-31); Albumin Level 4.8 g/dL (3.5-5.0); Alkaline Phosphatase 78 U/L (39-117); Anion Gap 12 (12-20); Aspartate Amino Transferase 23 U/L (5-31); Blood Urea Nitrogen 17 mg/dL (9-16); Calcium 9.4 mg/dL (8.4-10.2); Carbon Dioxide 24 mmol/L (22-29); Chloride 107 mmol/L (96-108); Cholesterol 189 mg/dL (<200); Estimated Glomerular Filt Rate > 60; HDL Cholesterol 75 mg/dL (>40); Potassium 4.0 mmol/L (3.3-5.1); Sodium 139 mmol/L (135-145); Total Protein 7.6 g/dL (6.5-8.0); Triglycerides 61 mg/dL (<150)
[2025-02-01 11:56] LABS: Ferritin 43 ng/mL (10-122); Thyroid Stimulating Hormone 1.66 uIU/mL (0.32-4.0)
[2025-02-01 11:58] LABS: Vitamin B12 448 pg/mL (200-900)
== END 2025-02-01 09:02 | disposition home or self-care (01) ==
LOC: HO.WFDLDS 09:01
PROVIDERS: Referring Provider Nurse Practitioner Psychiatric/Mental Health; Visit Provider Family Medicine
DX: Z00.00 Encounter for general adult medical examination without abnormal findings (principal); I10 Essential (primary) hypertension; F43.10 Post-traumatic stress disorder, unspecified; F41.0 Panic disorder [episodic paroxysmal anxiety]; F31.32 Bipolar disorder, current episode depressed, moderate; F90.0 Attention-deficit hyperactivity disorder, predominantly inattentive type
CPT/HCPCS: 36415; 80053; 80061; 81001; 82043; 82570; 82607; 82728; 84443; 85025

== ENCOUNTER 2025-02-14 15:30 | Outpatient (AMB) | payer OTHER, SELFPAY ==
--- NOTE | 2025-02-14 15:28 | MHC.PC.OV ---
Intake Visit Reasons: 1-2 mo labs Allergies amoxicillin Allergy (Mild, Verified 02/14/25 15:29) skin rash Seasonal Allergies Allergy (Verified 02/14/25 15:29) STUFFY NOSE, SORE THROAT Tobacco use date assessed: 02/14/25 Dental Screening Dental Screen Date: 02/14/25 Did you have a dental visit in the last 12 months?: Yes Did you have a dental problem in the last 6 months where you did not have access to dental care?: No Was dental information given to patient?: Patient has dentist HPI 1-2 mo labs HPI Details 29 y/o female presents to f/u labs via telemed. Labs drawn 02/01/25. Reviewed labs with pt. Triglycerides 61. TC 189. LDL 102. HDL 75. Rest of labs are fine. Notes it has been awhile since her last pap smear. [facility] Medical History UTI symptoms Dysuria Fainting spell Allergies Surgical History History of resection of large bowel Family History Mother No problems noted. 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 1. Little interest or pleasure in doing things: not at all 2. Feeling down, depressed, or hopeless: not at all 3. Trouble falling or staying asleep, or sleeping too much: not at all 4. Feeling tired or having little energy: not at all 5. Poor appetite or overeating: not at all 6. Feeling bad about yourself - or that you are a failure or have let yourself or your family down: not at all 7. Trouble concentrating on things, such as reading the newspaper or watching television: not at all 8. Moving or speaking so slowly that other people could have noticed. Or the opposite - being so fidgety or restless that you have been moving around a lot more than usual: not at all 9. Thoughts that you would be better off or of hurting yourself in some way: not at all Total score: 0 Depression Screening Interpretation: Negative Depression Screening Done: Yes Source: Developed by Drs. Gilbert Winston, Marilyn Hartmann, Alon Mclean and colleagues, with an educational elton from [employer]. Thrive Questionnaire Date Thrive assessed: 09/13/24 I am a: Patient What is your living situation today?: I have a steady place to live Within the past 12 months, did the food you bought not last and you didn't have the money to get more?: I choose not to answer this question Within the past 12 months, did you worry whether your food would run out before you got money to buy more?: I choose not to answer this question Do you have trouble paying for medicines?: I choose not to answer this question Do you have trouble getting transportation to medical appointments?: I choose not to answer this question Do you have trouble paying your heating and electricity bill?: I choose not to answer this question Do you have trouble taking care of your child, family member or friend?: I choose not to answer this question Do you have trouble with day-to-day activities such as bathing, preparing meals, shopping, managing finances, etc.?: I choose not to answer this question Are you currently unemployed and looking for a job?: I choose not to answer this question Are you interested in more education?: I choose not to answer this question Please select the resources that you would like help with: None Currently or been in a relationship where the following occur: No concerns reported THRIVE Score: 0 AUDIT C Alcohol Use Questionnaire (AUDIT-C) 1. How often do you have a drink containing alcohol?: Monthly or less 2. How many drinks containing alcohol do you have on a typical day when you are drinking?: 1 or 2 3. How often do you have six or more drinks on one occasion?: Never Total Score: 1 ELODIA-7 AMB Questionnaire ELODIA-7 Date ELODIA - 7 assessed: 09/13/24 Feeling nervous, anxious, or on edge: 1 = Several days Not being able to stop or control worryin = Not at all Worrying too much about different things: 0 = Not at all Trouble relaxin = Not at all Being so restless that it is hard to sit still: 0 = Not at all Becoming easily annoyed or irritable: 0 = Not at all Feeling afraid as if something awful might happen: 0 = Not at all Total ELODIA-7 score (0-4 normal; 5-9 mild; 10-14 moderate; 15-21 severe): 1 Source: Developed by Drs. Gilbert Winston, Marilyn Hartmann, Alon Mclean and colleagues, with an educational elton from [employer]. Review of Systems Const Denies chills, Denies fatigue, Denies fever(s), Denies headache(s) and Denies weakness ENT Denies dizziness and Denies headache(s) Card Denies dyspnea Resp Denies cough, Denies dyspnea, Denies wheezing and Denies other (shortness of breath) Musc Denies numbness and Denies tingling Neuro Denies dizziness, Denies headache(s), Denies numbness, Denies tingling and Denies weakness Psych Denies anxiety and Denies depression Endo Denies fatigue Aller/Immun Denies wheezing Physical exam (Primary Care) Tobacco/Smoking Status: Tobacco use Status Tobacco use date assessed 02/14/25 02/14/25 15:30 Patient Tobacco Use Status Never used Tobacco 02/14/25 15:30 e-Cigarette/Vaping Use Never Used 02/14/25 15:30 PHQ-9: PHQ-9 Score PHQ-9: Total score 0 02/14/25 16:06 Depression Screening Interpretation: Negative Thrive Assessment: Date of Thrive Assessment Date Thrive assessed 09/13/24 02/14/25 15:30 Currently or been in a relationship where the following occur: No concerns reported Telehealth Telehealth Telehealth Platform: Telephone Location of provider rendering services: practice address Location of patient: address on file Patient Identification confirmed using: Name, : Yes Telehealth method: voice only Patient verbally consented to treatment: Yes Patient verbally consented to billing insurance company: Yes Patient informed of any privacy concerns related to visit: Yes Minutes spent on Phone/Video with Pt.: 6 Coding Level of Care Code Tele Est Pt Level 2 (59496) Diagnoses Borderline high cholesterol E78.9 Screening for cervical cancer Z12.4 Assessment & Plan Assessment & Plan (1) Borderline high cholesterol: Code(s): E78.9 - Disorder of lipoprotein metabolism, unspecified Category: Medical Plan: Mildly elevated LDL cholesterol. Goal is less than 100 Encouraged a diet lower in saturated fats and cholesterol (2) Screening for cervical cancer: Code(s): Z12.4 - Encounter for screening for malignant neoplasm of cervix Category: Medical Plan: Patient says it has been awhile since she had a Pap smear Encouraged her to call her obstetrics and gynecology professor and she agrees
== END 2025-02-14 16:23 | disposition home or self-care (01) ==
LOC: HO.HMCFM 15:31
PROVIDERS: PCP Family Medicine; Visit Provider Family Medicine
DX: E78.9 Disorder of lipoprotein metabolism, unspecified (principal); Z12.4 Encounter for screening for malignant neoplasm of cervix